=== PATIENT | male | born 1940 | race Caucasian/White ===

== ENCOUNTER → 2019-09-13 | Outpatient (CLI) | payer MEDICARE, SELFPAY ==
--- NOTE | 2019-09-13 08:19 | RAD_ITS ---
STUDY: X-RAY - PELVIS AND LEFT HIP REASON FOR EXAM: Male, 79 years old. CHRONIC PAIN X 2 MONTHS. NO INJURY TECHNIQUE: 3 views of the pelvis and hip. COMPARISON: None. FINDINGS: Moderate amount of fecal material is seen in the colon. Normal visualized soft tissue structures. There is narrowing with cortical sclerosis and osteophyte formation of the sacroiliac joint consistent with degenerative osteoarthritic changes. Normal bilateral superior and inferior pubic rami. Normal pubic symphysis. Normal bilateral ischial tuberosities. Normal visualized femoral head. There is osteoarthritic spur formation of the acetabular rim. There is moderate articular joint space narrowing of the hip. RAD/HIP, UNI W/ Pelvis 2-3 Views IMPRESSION: Degenerative changes of the sacroiliac joints as well as both hip joints. Electronically Signed: Rachid Quiñonez, at 8:42 EDT , Service support ,
== END | disposition home or self-care (01) ==
LOC: HPRAD 08:16
PROVIDERS: PCP Internal Medicine; Referring Provider Internal Medicine; Visit Provider Internal Medicine
DX: R10.30 Lower abdominal pain, unspecified (principal)
CPT/HCPCS: 73502

== ENCOUNTER → 2019-10-30 | Outpatient (CLI) | payer MEDICARE, SELFPAY ==
--- NOTE | 2019-10-30 14:30 | RAD_ITS ---
STUDY: X-RAY - LUMBAR SPINE REASON FOR EXAM: Male, 79 years old. L hip pain x 4 months nki TECHNIQUE: 3 view(s) of the lumbar spine were obtained. COMPARISON: None FINDINGS: Normal lumbar lordosis. There is no substantial scoliosis. There is a normal alignment of the vertebrae. There is multilevel endplate spondylosis of the lumbar vertebrae. There is multi-level degenerative disc disease with multi-level disc space narrowing. Facet joint osteoarthritis. The soft tissue structures are unremarkable. RAD/Lumbar Spine 2 or 3 Views IMPRESSION: Degenerative changes of the spine, as detailed above. Electronically Signed: Rachid Quiñonez, at 15:04 EDT , Service support ,
== END | disposition home or self-care (01) ==
LOC: RAD 14:23
PROVIDERS: PCP Internal Medicine; Referring Provider Anesthesiology Pain Medicine; Visit Provider Anesthesiology Pain Medicine
DX: M54.5 Low back pain (principal)
CPT/HCPCS: 72100

== ENCOUNTER → 2019-12-26 | Outpatient (CLI) | payer MEDICARE, SELFPAY ==
--- NOTE | 2019-12-26 08:34 | RAD_ITS ---
STUDY: X-RAY - PELVIS AND LEFT HIP REASON FOR EXAM: Male, 79 years old. LEFT HIP PAIN, NO TRAUMA TECHNIQUE: 3 views of the pelvis and hip. COMPARISON: 09/13/2019 FINDINGS: There is a non-specific bowel gas pattern. Normal visualized soft tissue structures. Normal bilateral iliac wings, sacroiliac joints and visualized sacrum. Normal bilateral superior and inferior pubic rami. Normal pubic symphysis. Normal bilateral ischial tuberosities. Normal visualized femoral head. Normal acetabulum. There is mild articular joint space narrowing of the hip. RAD/HIP, UNI W/ Pelvis 2-3 Views IMPRESSION: Mild arthrosis. Electronically Signed: Cristiano Butcher MD at 16:52 EDT Tel , Service support ,
== END | disposition home or self-care (01) ==
LOC: HPRAD 08:29
PROVIDERS: PCP Internal Medicine; Referring Provider Anesthesiology Pain Medicine; Visit Provider Anesthesiology Pain Medicine
DX: M25.552 Pain in left hip (principal)
CPT/HCPCS: 73502

== ENCOUNTER 2020-05-09 17:59 | Emergency (ER) | payer MEDICARE, SELFPAY ==
[2020-05-09 18:00] VITALS: BP 139/83; PULSE 103; RESP 20; TEMP 36.3; O2SAT 99; BMI 25.7
--- NOTE | 2020-05-09 18:05 | RAD_ITS ---
STUDY: X-RAY - LUMBAR SPINE REASON FOR EXAM: Male, 79 years old. BACK PAIN AFTER TRYING TO LIFT HIS TODAY. TECHNIQUE: view(s) of the lumbar spine were obtained. COMPARISON: 30 October 2019 FINDINGS: Lumbar spine is aligned with minor levoscoliosis. Mineralization is decreased. There is irregularity, possibly fracture or degeneration of the inferior endplate of L4, which can be an acute osteoporotic fracture versus subacute/chronic fracture. However, this was not present in October of last year. Remainder of the vertebral bodies are intact. There are expected mild lower lumbar degenerative changes. Soft tissue shadows are unremarkable. Appearance is stable since prior. RAD/Lumbar Spine 2 or 3 Views IMPRESSION: 1. Possible inferior L4 endplate fracture, acute or subacute or chronic. This was not present in October of last year. 2. Osteoporosis. Electronically Signed: Jennifer Corado, at 19:39 EST Tel , Service support ,
--- NOTE | 2020-05-09 18:15 | RAD_ITS ---
STUDY: X-RAY - PELVIS AND RIGHT HIP REASON FOR EXAM: Male, 79 years old. RIGHT HIP PAIN AFTER TRYING TO LIFT HIS TODAY TECHNIQUE: 3 views of the pelvis and hip. COMPARISON: None. FINDINGS: The bones of the pelvis are intact and the hips are located. The skeleton is osteopenic. There are degenerative changes in the lumbar spine. SI joints are intact. There is no intestinal obstruction. Soft tissue shadows are unremarkable. RAD/HIP, UNI W/ Pelvis 2-3 Views IMPRESSION: No acute fracture. In the presence of discordant negative x-rays and positive high risk symptomatology definitive confirmation with CT is advised to evaluate for possible radiographically occult fracture in an older osteoporotic adults. Electronically Signed: Jennifer Corado, at 19:30 EST Tel , Service support ,
--- NOTE | 2020-05-09 18:52 | ED.VIS.GEN ---
History of Present Illness Chief Complaint: Back Informant: Patient Onset: Today Context: Sudden Onset Timing: Continuous Current Severity: Mild Maximum Severity: Moderate Narrative: The patient is an 79-year-old male with medical history significant for hypercholesterolemia, hypertension, and prior back pain who presents to the emergency department back injury. Patient states that his fell to the ground. He was bending over to try and lift her up. He states he felt something pull in his right low back. Since then, has had pain in his low back into his buttock. It does not radiate down his leg. He denies any numbness in his groin. He is still able to ambulate. He has not taken anything for his pain. He states as long as he is not moving, he really has no pain. He does have history of arthritis and is on meloxicam. He is also had injections in his back before. He denies any sciatic symptoms. Prior similar symptoms: Yes Recent Illness/Hospitalization: No Past Medical History - Allergies and Home Meds Allergies/Adverse Reactions: Allergies No Known Allergies Allergy (Verified 07/25/14 11:05) Primary Care Physician: Juana Valencia DO [Primary Care Provider] - Prior records reviewed: Yes Past Medical History: - - Hypertension, high cholesterol Surgical History: noncontributory Smoking Status: Unknown if ever smoked Review of Systems General: Denies: Chills, Fever, Sweats Eyes: Denies: Visual changes - bilaterally, Diplopia ENT: Denies: Rhinorrhea, Sore throat Cardiovascular: Denies: Chest pain, Palpitations Respiratory: Denies: Dyspnea, Cough, Dyspnea on exertion Gastrointestinal: Denies: Abdominal pain, Nausea, Vomiting, Diarrhea, Melena, Hematochezia Genitourinary: Denies: Dysuria, Hematuria, Frequency Musculoskeletal: Reports: Back pain. Denies: Extremity Pain Skin: Denies: Rash, Wounds Neurological: Denies: Headache, Weakness, Numbness Physical Exam Vital Signs/Narrative: Vital Signs Temp Pulse Resp BP Pulse Ox 05/09/20 18:00 97.3 F L 103 H 20 H 139/83 H 99 Inital Vital Signs reviewed: Yes General: Well nourished, Well developed, No Acute Distress Head: Normocephalic, Atraumatic Eyes: Perrl, EOMI ENT: Moist mucous membranes, No rhinorrhea Neck: Supple, Nontender Cardiovascular: Regular rate, Regular rhythm, No murmurs Respiratory: No distress, CTA bilaterally, Chest nontender Abdomen: Soft, Nontender, Nondistended, Normal bowel sounds Back: Nontender, Normal Inspection Extremities: Nontender, No edema Skin: Normal color, No rash Neurological: Alert, Oriented x3, Cranial nerves II-XII grossly intact, Normal Strength, Normal Sensation Psychological: Normal affect, Normal Mood Diagnostic/Tx/Re-eval Clinical Impression(s) from Imaging Studies Lumbar Spine X-Ray 05/09/20 18:05 IMPRESSION: 1. Possible inferior L4 endplate fracture, acute or subacute or chronic. This was not present in October of last year. 2. Osteoporosis. Electronically Signed: Jennifer Corado, at 19:39 EST Tel , Service support , Hip/Pelvis X-Ray 05/09/20 18:15 IMPRESSION: No acute fracture. In the presence of discordant negative x-rays and positive high risk symptomatology definitive confirmation with CT is advised to evaluate for possible radiographically occult fracture in an older osteoporotic adults. Electronically Signed: Jennifer Corado, at 19:30 EST Tel , Service support , - Medical Decision Making Patient presents with back pain after lifting his . He has no red flag symptoms. He has no significant midline tenderness. His reflexes and pulses are normal. He has no abdominal pain. Plain films are obtained. They were reviewed by both myself and the radiologist. X-rays of the pelvis were unremarkable there. There is some degenerative change, but no evidence of acute fracture. X-ray of the lumbar spine do show chronic change. There is a questionable compression fracture of the endplate of L4. I did review this with the patient. Clinically, this may be consistent or may be subacute. I am going to treat him with a short course of analgesics and scheduled Tylenol. He will be discharged home. Impression 1. Compression fracture l4 ED Disposition - Plan for ED Patient: Instructions: ED Back Pain (Acute or Chronic) Prescriptions: Docusate Sodium [Colace] 100 mg PO DAILY #20 cap Prescription Printed Oxycodone [Oxyir] 2.5 mg PO Q6H PRN PRN 3 Days #8 tab PRN Reason: Pain/Inflammation Prescription Printed Referrals: Juana Valencia DO [Primary Care Provider] -
[2020-05-09 19:59] VITALS: BP 138/77; PULSE 72; RESP 16; O2SAT 98
== END 2020-05-09 19:59 | disposition home or self-care (01) ==
LOC: ED 19:17
PROVIDERS: Emergency Provider Emergency Medicine; PCP Internal Medicine
DX: S32.049A Unspecified fracture of fourth lumbar vertebra, initial encounter for closed fracture (principal); E78.00 Pure hypercholesterolemia, unspecified; I10 Essential (primary) hypertension; M19.90 Unspecified osteoarthritis, unspecified site; Z79.1 Long term (current) use of non-steroidal anti-inflammatories (NSAID); X50.0XXA Overexertion from strenuous movement or load, initial encounter; Y93.89 Activity, other specified; Y92.009 Unspecified place in unspecified non-institutional (private) residence as the place of occurrence of the external cause; Y99.8 Other external cause status
CPT/HCPCS: 72100; 73502; 99282

== ENCOUNTER → 2020-05-16 09:50 | Outpatient (CLI) | payer MEDICARE, SELFPAY ==
[2020-05-09 18:00] VITALS: BMI 25.7
--- NOTE | 2020-05-16 09:55 | BD_ITS ---
STUDY: DUAL ENERGY X-RAY ABSORPTIOMETRY / DXA REASON FOR EXAM: Male, 79 years old. CECI OF 0.75 INCH -- RECENT L4 COMPRESSION FX -- HX OF SMOKING- QUIT 50 YRS AGO -- TAKES DIURETIC -- DOES MODERATE AMOUNT OF EXERCISE NORMALLY -- HX OF ANKLE FX AND L4 FX, QUESTIONING R HIP FX CURRENTLY TECHNIQUE: Bone Mineral Density (BMD) measurements of lumbar spine and bilateral hips were obtained. COMPARISON: None. FINDINGS: Lumbar Spine (L1-L4): g/cm2 (1.072) / T-score (-1.1) / Z-score (-0.3) Findings are suggestive of osteopenia with a low fracture risk. Left Femur Total: g/cm2 (0.844) / T-score (-1.8) / Z-score (-0.6) Left Femoral Neck: g/cm2 (0.861) / T-score (-1.6) / Z-score (0.0) Right Femur Total: g/cm2 (0.884) / T-score (-1.5) / Z-score (-0.3) Right Femoral Neck: g/cm2 (0.930) / T-score (-1.1) / Z-score (0.5) BD/Dexa Bone Density Study IMPRESSION: The patient is considered osteopenic as outlined below according to World Charles Organization (WHO) criteria with a moderate fracture risk. Reference Information: The T-score is the number of standard deviations above or below the standard which is normal for young adults at their peak bone mineral density. The World Health Organization (WHO) interprets the T-scores as follows: Above -1 Normal bone density Between -1 and -2.5 Osteopenia Equal to / or below -2.5 Osteoporosis As a practical clinical guideline, osteopenia may be graded as follows: Mild -1 through -1.5 Moderate -1.6 through -2.0 Severe -2.1 through -2.4 The Z-score is the number of standard deviations above or below age-matched controls. A Z-score of less than -1.5 would be considered abnormal. References: 1. NIH Osteoporosis and Related Bone Diseases www osteo.org 2. International Society for Clinical Densitometry www iscd.org 3. National Osteoporosis Foundation www nof.org Electronically Signed: Rachid Quiñonez, at 12:59 EST , Service support ,
== END ==
PROVIDERS: PCP Internal Medicine; Referring Provider Internal Medicine; Visit Provider Internal Medicine
DX: M81.0 Age-related osteoporosis without current pathological fracture (principal)
CPT/HCPCS: 77080

== ENCOUNTER → 2020-05-23 07:46 | Outpatient (CLI) | payer MEDICARE, SELFPAY ==
[2020-05-09 18:00] VITALS: BMI 25.7
--- NOTE | 2020-05-23 08:02 | CT_ITS ---
HISTORY: ABNORMAL XRAY TECHNIQUE: Helically acquired images were obtained of the lumbar spine without intravenous contrast. 2D reformats were reviewed. A radiation dose optimization technique was used for this scan. COMPARISON: Most recent comparison x-rays available from May 09, 2020 FINDINGS: # of images incl. paperwork: 383 Schmorl's node invagination at the inferior endplate of the L4 vertebral body has some lucency at its margins, especially on the left, consistent with an acute Schmorl's node inferior endplate fracture. Mild the scoliosis, and a dextroscoliosis of the thoracolumbar junction, and a levoscoliosis at the lower lumbar spine is similar to the previous x-ray. Facets are adequately aligned. No spinous process or transverse process acute fractures. Bone mineral density is diminished. At the L3-L4 level facet arthropathy, ligamentum thickening, and disc bulge cause moderate spinal canal stenosis. At the L4-L5 level facet arthropathy and ligamentum thickening degenerative malalignment, and disc protrusion cause severe spinal canal stenosis. At the L5-S1 level disc bulge and facet arthropathy remain. Ligamentum thickening is less. Neural foraminal stenosis is present, left greater than right due to endplate enthesophytes. Gas is present dorsal to the L4 vertebral body, dorsal to the spinal canal at the L3-L4 interspace, and dorsal to the thecal sac at the L5-S1 level, consistent with epidural gas. This is likely extrathecal. CT/Spine Lumbar without Contrast IMPRESSION: Acute versus subacute fracture of the inferior endplate of the L4 vertebral body likely due to insufficiency and a Schmorl's node invagination. Vacuum disc phenomenon indicative of degenerative disc disease at the L5-S1 level with bilateral neural foraminal stenosis, left greater than right. Severe spinal canal stenosis at the L4-L5 level due to degenerative malalignment, facet arthropathy, ligamentum thickening, and disc protrusion. Gas within the spinal canal that is extradural. This is of unknown etiology but could be related to an interventional procedure such as a lumbar puncture. Degenerative disc gas from vacuum disc phenomenon and disc protrusion is feasible but considered less likely. In the absence of intervention, the possibility of gas related to infection is also within the differential. On this noncontrast CT scan I do not identify any other sequelae of potential epidural infection. For that, an MRI of the lumbar spine would be necessary. Individualized dose optimization techniques were used for this CT. at 2406 Reported and signed by: Brent Sykes MD Electronically Signed: Brent Sykes MD at 4:25 EST Tel , Service support ,
--- NOTE | 2020-05-23 08:03 | CT_ITS ---
STUDY: CT RIGHT HIP WITHOUT CONTRAST REASON FOR EXAM: Male, 79 years old. Abnormal x-ray RADIATION DOSAGE (If Supplied By Facility): CTDIvol = ( 15.37 ) mGy, DLP = ( 446.31 ) mGycm TECHNIQUE: Transaxial imaging of the right hip was performed without intravenous administration of contrast material. Individualized dose optimization techniques were used for this CT. COMPARISON EXAMS: X-ray of the right hip dated May 09, 2020 FINDINGS: There is mild to moderate proximal narrowing in the right hip joint with associated subchondral cystic changes in the acetabular roof. No demonstrated acute fracture or displaced bony fragment. The bony structures are demineralized. No aggressive process is present. No evidence of osteonecrosis. Atherosclerotic calcifications are present. Normal visualized superior and inferior pubic rami and ischial tuberosities. Mild subcutaneous edema is present. The visualized muscles are within normal limits. Unremarkable visualized intrapelvic structures. CT/Extremity Lower without Contra IMPRESSION: 1. 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 Electronically Signed: Adi Nunn MD at 0:00 EST , Service support ,
[2020-05-23 08:13] LABS: Absolute Lymphocyte Count 1.35 X10^3/uL (0.83-4.51); Absolute Neutrophil Count 6.8 X10^3/uL (2.0-7.7); Basophil# 0.02 X10^3/uL; Basophil% 0.2 % (0-1); Eosinophil# 0.01 X10^3/uL; Eosinophils% 0.1 % (0-5); Hematocrit 31.6 % (40-54); Hemoglobin 10.1 g/dL (13.0-16.5); Lymphocyte # 1.35 X10^3/ul (4.0); Lymphocyte % 15.3 % (19-41); Mean Corpuscular Hgb 31.7 pg (27.0-32.0); Mean Corpuscular Volume 99.1 fL (80-94); Mean Platelet Vol. 8.6 fl (6.2-12.0); Monocyte# 0.62 X10^3/uL; NRBC Flagged by Analyzer 0 % (0-5); Neutrophil # 6.79 X10^3/uL (2.7-7.7); Neutrophil % 76.7 % (47-70); Platelet Count 338 K/mm3 (150-450); RBC Distribution Width CV 13.8 % (11.6-14.6); RBC Distribution Width SD 50.2 fl (35.1-43.9); Red Blood Count 3.19 M/mm3 (4.6-6.2); White Blood Count 8.9 K/mm3 (4.4-11.0)
[2020-05-23 08:34] LABS: PTHIN 20.8 pg/mL (18.4-80.1)
[2020-05-23 08:44] LABS: AST(SGOT) 14 U/L (15-37); Alanine Aminotransfer ALT/SGPT 10 U/L (16-61); Alkaline Phosphatase 77 U/L (45-117); Bilirubin, Direct 0.11 mg/dL (0.00-0.30); CRP < 2.90 mg/L (0.0-3.0); Calcium,Total 10.3 mg/dL (8.5-10.1); Globulin 7.6 g/dL (2.2-4.2); Phosphorus 3.1 mg/dL (2.5-4.9); Protein, Total 10.6 g/dL (6.4-8.2); Thyroid Stim Hormone (TSH) 2.78 uIU/mL (0.358-3.74)
[2020-05-27 16:08] LABS: PROEL- A/G Ratio 0.6 (0.7-1.7); PROEL- Albumin 3.7 g/dL (2.9-4.4); PROEL- Alpha-1 Globulin 0.3 g/dL (0.0-0.4); PROEL- Gamma Globulin 3.9 g/dL (0.4-1.8); PROEL- Globulin, Total 6.2 g/dL (2.2-3.9); PROEL- TOTAL PROTEIN 9.9 g/dL (6.0-8.5); PROELU- Albumin, Urine 31.2 % (.); PROELU- Alpha-1-Globulin,Ur 8.3 % (.); PROELU- Alpha-2-Globulin,Ur 20.2 % (.); PROELU- Beta Globulin, Ur 23.8 % (.); PROELU- Gamma Globulin, Ur 16.6 % (.); Total Protein, Ur 7.3 mg/dL (Not Estab.)
[2020-05-27 18:52] LABS: Vitamin D 1,25-Dihydroxy 37.1 pg/mL (19.9-79.3)
== END ==
PROVIDERS: PCP Internal Medicine; Referring Provider Internal Medicine; Visit Provider Internal Medicine
DX: M81.0 Age-related osteoporosis without current pathological fracture (principal); R93.7 Abnormal findings on diagnostic imaging of other parts of musculoskeletal system; R93.89 Abnormal findings on diagnostic imaging of other specified body structures
CPT/HCPCS: 36415; 72131; 73700; 80076; 82306; 82310; 82652; 83970; 84100; 84165; 84166; 84443; 85025; 86140

== ENCOUNTER → 2020-05-31 14:30 | Outpatient (CLI) | payer MEDICARE, SELFPAY ==
[2020-05-09 18:00] VITALS: BMI 25.7
--- NOTE | 2020-05-31 14:43 | MRI_ITS ---
STUDY: MRI LUMBAR SPINE WITHOUT CONTRAST REASON FOR EXAM: Male, [address] lumbar, L4 fracture TECHNIQUE: Standardized fat and water weighted pulse sequences were obtained in the sagittal and axial planes. COMPARISON: CT 05/23/2020, x-ray 10/30/2019 FINDINGS: T12-L1: Normal endplates. Normal disc height, hydration and morphology. Normal bilateral facet joints. Normal central canal and bilateral lateral recesses. Normal bilateral intervertebral neural foramina. Normal lumbar lordosis. Mild levoscoliosis of the lumbar spine centered at L4. Normal conus medullaris that terminates at the T12/L1. L1-2: Normal endplates. Normal disc height, hydration and morphology. Normal bilateral facet joints. Normal central canal and bilateral lateral recesses. Normal bilateral intervertebral neural foramina. L2-3: Normal endplates. Normal disc height, hydration and morphology. Normal bilateral facet joints. Normal central canal and bilateral lateral recesses. Normal bilateral intervertebral neural foramina. L3-4: Normal endplates. Normal disc height, hydration and morphology. Normal bilateral facet joints. Normal central canal and bilateral lateral recesses. Normal bilateral intervertebral neural foramina. L4-5: Moderate bilateral facet hypertrophy with fluid in the facet joints consistent with instability and moderate ligament flavum hypertrophy. 2 mm of anterolisthesis of L4 and L5 with a moderate broad disc protrusion produces moderate spinal stenosis with mild right lateral recess stenosis, severe left lateral recess stenosis with effacement the left L5 nerve root and mild bilateral neural foraminal stenosis. L5-S1: Mild bilateral facet hypertrophy. Mild broad disc protrusion produces a mild spinal stenosis and moderate left neural foraminal stenosis with abutment of the left L5 nerve root laterally. Normal visualized sacral ala. Normal visualized paraspinous soft tissue structures. MRI/Spine Lumbar (Routine) IMPRESSION: Mild levoscoliosis with degenerative disc disease as described above. Electronically Signed: Cristiano Butcher MD at 10:05 EST Tel , Service support ,
--- NOTE | 2020-05-31 15:04 | RAD_ITS ---
STUDY: X-RAY - ORBITS REASON FOR EXAM: Male, 79 years old. mri clearance TECHNIQUE: 2 view(s) of the orbits were obtained. COMPARISON: None. FINDINGS: Normal bilateral orbits without a metallic orbital foreign body. Normal visualized facial bones. Normal paranasal sinuses. The soft tissue structures are unremarkable. RAD/Orbits for Foreign Body IMPRESSION: No demonstrated metallic orbital foreign body. The patient is cleared for an MRI examination. Electronically Signed: Rachid Quiñonez MD at 15:13 EST , Service support ,
[2020-06-04 14:08] LABS: Immunoglobulin G 4910 mg/dL (603-1613)
[2020-06-04 15:01] LABS: Immunoglobulin A 5 mg/dL (61-437); Immunoglobulin M 15 mg/dL (15-143)
== END ==
PROVIDERS: PCP Internal Medicine; Visit Provider Internal Medicine
DX: R93.7 Abnormal findings on diagnostic imaging of other parts of musculoskeletal system (principal); R77.1 Abnormality of globulin
CPT/HCPCS: 36415; 70030; 72148; 82784; 86334; 86335

== ENCOUNTER 2020-06-07 10:02 | Observation (INO) | payer MEDICARE, SELFPAY ==
[2020-06-07 10:03] VITALS: BP 149/87; PULSE 95; RESP 20; TEMP 35.8; O2SAT 98; BMI 25.0
--- NOTE | 2020-06-07 10:29 | EKG12_ITS ---
Test Reason : Blood Pressure : / mmHG Vent. Rate : 089 BPM Atrial Rate : 089 BPM P-R Int : 172 ms QRS Dur : 088 ms QT Int : 342 ms P-R-T Axes : 051 016 063 degrees QTc Int : 416 ms Normal sinus rhythm Normal ECG Confirmed by ADRIAN GALLARDO, JONATHAN (1980), newspaper editor RAMON OLIVER ([id number]) on 06/10/2020 2:11:40 PM Referred By: ERIKA Confirmed By:JONATHAN CAMPBELL MD
--- NOTE | 2020-06-07 10:29 | RAD_ITS ---
STUDY: X-RAY CHEST REASON FOR EXAM: Male, 79 years old. Weakness TECHNIQUE: Single AP portable view of the chest. COMPARISON: Comparison is made with prior study dated 07/25/2014. FINDINGS: EKG electrodes are seen. Hyperinflation. Calcified granuloma in the right midlung. There is no demonstrated pleural abnormality. Normal size heart. Normal mediastinum and natanael. Normal visualized pulmonary arteries. Normal visualized aortic arch and descending thoracic aorta. There are diffuse degenerative changes of the visualized thoracic spine. Normal visualized ribs, clavicles, and shoulders. There is no demonstrated abnormality of the visualized soft tissue structures of the upper abdomen. RAD/Chest 1 View (Portable) IMPRESSION: Hyperinflation. The lungs are clear. Electronically Signed: Rachid Quiñonez MD at 11:19 EST , Service support ,
[2020-06-07 10:30] VITALS: BP 154/84; PULSE 89; RESP 16; O2SAT 97
--- NOTE | 2020-06-07 10:32 | ED.VIS.GEN ---
History of Present Illness Chief Complaint: Weakness Informant: Patient, Family Onset: Weeks - 1 Context: Gradual Onset Timing: Continuous Quality: weakness Location: all over Current Severity: Moderate Maximum Severity: Moderate Worsened by: nothing in particular Relieved by: nothing Associated Symptoms: nausea, decreased appetite, constipation. no other new sx. Narrative: 79-year-old male who has been feeling weak for about the past week. Gradual in onset, not usually like this. Able to walk around with his walker. Denies any lightheadedness, dizziness, syncope. He had a minor fall 2 or 3 weeks ago, injuring his low back and radiography showed an L4 vertebral fracture. He has not yet seen health insurance specialist but is slated to in 3 days on Wednesday at the appointment that he has had. He has been taking tramadol for the pain in addition to meloxicam, and has been getting more constipated since then. He did take magnesium citrate a couple days ago which did result in a good bowel movement. His last bowel movement was a day before yesterday, and he has only been taking Colace since then, no MiraLAX although he has taken that once or twice in the past week. Not used any enemas yet either. He denies any abdominal pain. No vomiting but he has not been eating or drinking well. Additionally, he and daughter state that he had some elevated protein levels recently that is currently undergoing work-up. Patient denies any saddle anesthesia, radiation of pain down his legs, or urinary/bowel incontinence. He has had some trouble making a good stream of urine but this is new since he was constipated. He recently had a CT and MRI of his low back since his fracture, the MRI did not show anything acute just a mild DDD at 1 or 2 levels. Past Medical History - Allergies and Home Meds Allergies/Adverse Reactions: Allergies No Known Allergies Allergy (Verified 06/07/20 10:05) Primary Care Physician: Juana Valencia DO [Primary Care Provider] - Surgical History: noncontributory Lives: With Family Smoking Status: Unknown if ever smoked Review of Systems General: Reports: Malaise. Denies: Chills, Fever, Sweats Eyes: Denies: Visual changes - bilaterally, Diplopia ENT: Denies: Bilateral ear pain, Rhinorrhea, Sore throat Cardiovascular: Denies: Chest pain, Palpitations Respiratory: Denies: Dyspnea, Cough, Dyspnea on exertion Gastrointestinal: Reports: Nausea, Constipation. Denies: Abdominal pain, Vomiting, Diarrhea, Melena, Hematochezia Genitourinary: Denies: Dysuria, Hematuria, Frequency Musculoskeletal: Reports: Back pain - Distal spine at area of fracture, L4, especially when he does certain movements like sitting up. Lying at rest he really is not in much pain.. Denies: Myalgias, Neck pain, Swelling, Extremity Pain Skin: Denies: Rash, Wounds Neurological: Denies: Headache, Weakness, Numbness Physical Exam Vital Signs/Narrative: Vital Signs Temp Pulse Resp BP Pulse Ox 06/07/20 10:03 96.4 F L 95 20 H 149/87 H 98 Inital Vital Signs reviewed: Yes General: Well nourished, Well developed, No Acute Distress Head: Normocephalic, Atraumatic Eyes: Perrl, EOMI ENT: Moist mucous membranes, No rhinorrhea Neck: Supple, Nontender, No lymphadenopathy, No JVD Cardiovascular: Regular rate, Regular rhythm, No murmurs. Negative for: Tachycardia Respiratory: No distress, CTA bilaterally, Chest nontender Abdomen: Soft, Nontender, Nondistended, Normal bowel sounds, No masses. Negative for: Pulsatile mass Back: Nontender - And able to sit up with minimal assistance without significant pain or discomfort, Normal Inspection. Negative for: CVA tenderness Extremities: Nontender, No edema. Negative for: Calf Tenderness Skin: Normal color, No rash, No Trauma Neurological: Alert, Oriented x3, Cranial nerves II-XII grossly intact, Normal Strength, Normal Sensation, - - Hyporeflexive, symmetric. No clonus. Downgoing toes. Psychological: Normal affect, Normal Mood Diagnostic/Tx/Re-eval Impressions Chest X-Ray 06/07/20 10:29 IMPRESSION: Hyperinflation. The lungs are clear. Electronically Signed: Rachid Quiñonez MD at 11:19 EST , Service support , 06/07/20 10:29 Chest 1 View (Portable) [RAD] Stat Laboratory Results 06/07/20 06/07/20 06/07/20 10:50 10:50 11:20 WBC 4.8 RBC 3.23 L Hgb 10.5 L Hct 31.0 L MCV 96.0 H MCH 32.5 H MCHC 33.9 RDW Std Deviation 46.6 H RDW Coeff of Orestes 13.2 Plt Count 295 MPV 8.3 Immature Gran % (Auto) 0.400 Neut % (Auto) 56.8 Lymph % (Auto) 23.3 [place] % (Auto) 13.5 H Eos % (Auto) 5.4 H Baso % (Auto) 0.6 Absolute Neuts (auto) 2.7 Absolute Lymphs (auto) 1.12 Nucleated RBC % 0 Sodium 126 L Potassium 3.7 Chloride 94 L Carbon Dioxide 27.0 Anion Gap 5 BUN 18 Creatinine 1.32 H Estim Creat Clear Calc 49.60 Est GFR (MDRD) Af Amer 67 Est GFR (MDRD) Non-Af 55 L BUN/Creatinine Ratio 13.6 Glucose 93 Calcium 9.8 Total Bilirubin 0.50 AST 13 L ALT 12 L Alkaline Phosphatase 111 Troponin I < 0.015 Total Protein 10.1 H Albumin 2.9 L Globulin 7.2 H Albumin/Globulin Ratio 0.4 L Urine Color Yellow Urine Clarity Clear Urine pH 6.5 Ur Specific [place] 1.015 Urine Protein Negative Urine Glucose (UA) Normal Urine Ketones Negative Urine Occult Blood Negative Urine Nitrite Negative Urine Bilirubin Negative Urine Urobilinogen Normal Ur Leukocyte Esterase Negative Urine RBC 0 SEEN Urine WBC 0 SEEN Ur Squamous Epith Cells 0 SEEN Urine Bacteria 0 SEEN Urine Mucus 0 SEEN - Rhythm Strip Rhythm Strip: Sinus Rhythm Rate: 90 Ectopy: None - EKG Initial EKG Interpretation: Sinus Rhythm, No Acute Injury Pattern - normal EKG Prior: Unchanged - Medical Decision Making Work-up shows mild hyponatremia which I suspect is causing his symptoms. This is new. His renal function is stable, and he does not have significant prerenal azotemia. I suspect he is euvolemic. With regards to his hyperproteinemia, it appears that his recent work-up shows monoclonal lambda chain immunoglobulin, which is consistent with multiple myeloma. I discussed these findings briefly with the patient and daughter, they do not yet have an appointment with a hematology/social work specialist. We did start giving him gentle normal saline here in the department, and discussed with hospitalist for admission. ED Disposition - Plan for ED Patient: Disposition: Acute Care Hospital [facility] Diagnosis: Generalized weakness, Acute hyponatremia, Hyperproteinemia Referrals: Juana Valencia DO [Primary Care Provider] -
[2020-06-07] MEDS: 0.9% Normal Saline 1,000 ML 250 ML IV (11:02)
[2020-06-07 11:16] LABS: Absolute Lymphocyte Count 1.12 X10^3/uL (0.83-4.51); Absolute Neutrophil Count 2.7 X10^3/uL (2.0-7.7); Basophil# 0.03 X10^3/uL; Basophil% 0.6 % (0-1); Eosinophil# 0.26 X10^3/uL; Eosinophils% 5.4 % (0-5); Hemoglobin 10.5 g/dL (13.0-16.5); Lymphocyte # 1.12 X10^3/ul (4.0); Lymphocyte % 23.3 % (19-41); Mean Corp Hgb Conc 33.9 g/dL (32-36); Mean Corpuscular Hgb 32.5 pg (27.0-32.0); Mean Platelet Vol. 8.3 fl (6.2-12.0); Monocyte# 0.65 X10^3/uL; Monocyte% 13.5 % (0-10); NRBC Flagged by Analyzer 0 % (0-5); Neutrophil # 2.72 X10^3/uL (2.7-7.7); Neutrophil % 56.8 % (47-70); POSITIVE MORPHOLOGY YES; Platelet Count 295 K/mm3 (150-450); RBC Distribution Width CV 13.2 % (11.6-14.6); RBC Distribution Width SD 46.6 fl (35.1-43.9); Red Blood Count 3.23 M/mm3 (4.6-6.2); White Blood Count 4.8 K/mm3 (4.4-11.0)
[2020-06-07 11:17] LABS: Differential Indicated SCAN CRITERIA MET
[2020-06-07 11:25] LABS: Bacteria 0 SEEN /hpf (None Seen); Color, Urine Yellow (Yellow); Glucose, Dipstick Normal (Normal); Ketone-Dipstick Negative (Negative); Leukocyte Esterase-Dipstick Negative /ul (Negative); Mucous, Urine 0 SEEN /hpf (<or=2+); Nitrite-Dipstick Negative (Negative); Occult Blood-Urine Negative /ul (Negative); Protein-Dipstick Negative (Negative); Red Blood Cells-Urine 0 SEEN /hpf (0-5); Specific Gravity, Urine 1.015 (1.002-1.030); Squamous Epithelial Cells - UA 0 SEEN /hpf (0-5); Urine Bilirubin Dipstick Negative (Negative); Urine Clarity Clear (Clear); Urine Urobilinogen Normal (Normal); Urine pH 6.5 (5.0 - 8.0); White Blood Cells 0 SEEN /hpf (0-5)
[2020-06-07 11:31] LABS: ALB/GLOB Ratio 0.4 RATIO (0.9-2.4); AST(SGOT) 13 U/L (15-37); Alanine Aminotransfer ALT/SGPT 12 U/L (16-61); Albumin, Serum 2.9 g/dL (3.2-5.0); Alkaline Phosphatase 111 U/L (45-117); Anion Gap 5 (5-15); BUN 18 mg/dL (7-18); BUN/Creat Ratio 13.6 RATIO (10-20); Calcium,Total 9.8 mg/dL (8.5-10.1); Chloride 94 mmol/L (98-107); Creatinine, Serum 1.32 mg/dL (0.70-1.30); EST Glomerular Filtration Rate 55 mL/min (>60); Est Glom Filt Rate - Afr Amer 67 mL/min (>60); Globulin 7.2 g/dL (2.2-4.2); Glucose 93 mg/dL (74-106); Potassium 3.7 mmol/L (3.5-5.1); Protein, Total 10.1 g/dL (6.4-8.2); Sodium Level 126 mmol/L (136-145)
[2020-06-07 11:50] VITALS: BP 138/82; PULSE 86; RESP 15; O2SAT 98
[2020-06-07 13:16] VITALS: BMI 23.2
--- NOTE | 2020-06-07 13:24 | RAD_ITS ---
STUDY: X-RAY BONE SURVEY COMPLETE REASON FOR EXAM: Male, 79 years old. lab work consistent with multiple myeloma, multiple recent falls, increasing weakness, and low back pain TECHNIQUE: One view of the pelvis was obtained. views of the cervical spine were obtained. views of the thoracic spine were obtained. views of the lumbar spine were obtained. views of the femur. views of the humerus. : views of the skull were obtained. COMPARISON: None. FINDINGS: CHEST: The lungs are clear and expanded. There is no demonstrated pleural abnormality. Normal size heart. Normal mediastinum and natanael. Normal visualized pulmonary arteries. Normal visualized aortic arch and descending thoracic aorta. Normal visualized thoracic spine. Normal visualized ribs, clavicles, and shoulders. There is no demonstrated abnormality of the visualized soft tissue structures of the upper abdomen. PELVIS: There is a non-specific bowel gas pattern. Normal visualized soft tissue structures. Normal bilateral iliac wings, sacroiliac joints and visualized sacrum. Lytic expansile lesion of the left superior pubic ramus and correlation with CT and MRI is recommended. Normal pubic symphysis. Normal ischial tuberosities. Normal visualized right femoral head. Normal right acetabulum. Normal right hip joint. Normal visualized left femoral head. Normal left acetabulum. Normal left hip joint. CERVICAL SPINE: Normal anterior atlantoaxial articulation. Normal odontoid process. Normal cervical lordosis. There is multi-level endplate spondylosis. There is multi-level degenerative disc disease with multilevel disc space narrowing. Normal visualized intervertebral neuroforamina. The soft tissue structures are unremarkable. THORACIC SPINE: Normal kyphosis of the thoracic spine. Mild dextroscoliosis. There is multilevel endplate spondylosis of the thoracic vertebrae. There is multilevel disc space narrowing of the thoracic spine. The soft tissue structures are unremarkable. LUMBAR SPINE: Normal lumbar lordosis. Mild levoscoliosis. There is a normal alignment of the vertebrae. There is multilevel endplate spondylosis of the lumbar vertebrae. There is multi-level degenerative disc disease with multi-level disc space narrowing. The soft tissue structures are unremarkable. RIGHT FEMUR: Normal visualized femur. Normal visualized soft tissue structure. LEFT FEMUR: Normal visualized femur. Normal visualized soft tissue structure. RIGHT HUMERUS :Normal visualized humerus. There is no demonstrated fracture or osseous destructive process. There is no demonstrated soft tissue abnormality. LEFT HUMERUS:Normal visualized humerus. There is no demonstrated fracture or osseous destructive process. There is no demonstrated soft tissue abnormality. SKULL: There is no demonstrated soft tissue swelling. Normal osseous calvarium. Normal visualized facial bones. Normal visualized paranasal sinuses. RAD/Bone Survey Comp(Axial&Append) IMPRESSION: 1. Lytic expansile lesion of the left superior pubic ramus and correlation with CT or MRI is recommended. 2. No other radiographic evidence of multiple myeloma. 3. 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 Electronically Signed: Cristiano Butcher MD at 9:35 EST Tel , Service support ,
[2020-06-07 13:26] VITALS: BP 147/83; PULSE 88; RESP 14; TEMP 36.7; O2SAT 98
--- NOTE | 2020-06-07 13:53 | HP.PCM_ITS ---
History of Present Illness Date of Admission: 06/07/20 Chief Complaint: Weakness The patient is a 79 year old M with a PMH as below who presents to the hospital with family for weakness appears to started gradually over the last week and has been getting worse, he has progressed from being independent being able to shovel snow to requiring a walker to walk around the house. He has had a couple of minor falls over the last several weeks the family has noticed has become much more significant recently. He did have an x-ray of his low back after one of his falls which did show an L4 vertebral fracture. He was also found to have incidentally as an outpatient an elevated total protein and was being worked up for multiple myeloma. On review of his outpatient labs his lab work-up is consistent with multiple myeloma. The ER physician did express this to the patient and his family. Vital signs are unremarkable, his lab work demonstrates anemia hyponatremia, kidney disease though it is mild as well as a total protein of 10.1 all of which is consistent with multiple myeloma. Past Medical History Allergies No Known Allergies Allergy (Verified 06/07/20 10:05) Home Medications: Ambulatory Orders Medication Instructions Recorded Docusate Sodium [Colace] 100 mg PO DAILY #20 cap 05/09/20 Celecoxib [Celebrex] 200 mg PO DAILY 06/07/20 Cholecalciferol (VIT D3) [Vitamin 2,000 unit PO DAILY 06/07/20 D] Duloxetine HCl 30 mg PO DAILY 06/07/20 Fenofibric Acid (Choline) 45 mg PO DAILY 06/07/20 [Trilipix] Fish Oil/Dha/Epa [Fish Oil 1,200 1 ea PO DAILY 06/07/20 mg Fish Oil] Gluc Christian/Chondro Christian A/Vit C/Mn 2 ea PO DAILY 06/07/20 [Glucosamine Chondroitin Tab] Lisinopril-Hctz 10-12.5 mg Tab 2 tab PO DAILY 06/07/20 Mecobalamin [B12 Active] 2,000 mcg PO DAILY 06/07/20 Meloxicam 15 mg PO DAILY 06/07/20 Simvastatin 20 mg PO DAILY 06/07/20 traMADol [Ultram (G)] 50 mg PO BID PRN PRN 06/07/20 Surgical History: no surgical history Lives: With Family Smoking Status: Former smoker Tobacco Use: Cigarettes Alcohol: None Drugs: None - *Family History Maternal History Items: Cancer Paternal History Items: No pertinent history Review of Systems Constitutional: Reports: Weakness. Denies: Chills, Fever, Weight Change HEENT: Denies: Head Aches, Sinus Congestion, Sinus Drainage Cardiovascular: Denies: Chest Pain, Palpitations Respiratory: Denies: Cough, Shortness of breath at rest, Sputum production Gastrointestinal: Reports: Constipation, Nausea. Denies: Abdominal Pain, Vomiting Genitourinary: Denies: Dysuria Musculoskeletal: Reports: Back Pain. Denies: Joint Pain, Joint Tenderness Skin: Denies: Rash, Wounds Neurological: Denies: Numbness, Tingling, Focal weakness Psychiatric: Denies: Anxiety, Depression Hematologic/ Lymphatic: Denies: Easy Bruising, Easy Bleeding VTE Information - Inpt Only VTE Present on Admission: No Patient Problems: Active and Suspected Problems Generalized weakness (Acute) Acute hyponatremia (Acute) Hyperproteinemia (Acute) - Physical Exam Vitals/I&O's: Vital Signs Temp Pulse Resp BP Pulse Ox 98.0 F 88 14 147/83 H 98 06/07/20 13:26 06/07/20 13:26 06/07/20 13:26 06/07/20 13:26 06/07/20 13:26 Oxygen Delivery Method Room Air Weight: 176 lb 3 oz Body Mass Index (BMI) 23.2 Intake and Output for Last 24 Hours 06/05/20 06/06/20 06/07/20 23:59 23:59 23:59 Intake Total 241.67 / 241.67 Balance 241.67 / 241.67 General: Alert, Oriented x3, Cooperative, No apparent distress HEENT: Atraumatic, PERRLA, EOMI, Normocephalic Oral: Moist Mucosa Neck: Supple, No JVD Lungs: Clear to auscultation, Normal air movement, No rhonchi, No wheeze, No rales Cardiovascular: Regular rate, Regular Rhythm, Normal S1, Normal S2, No murmurs Abdomen: Soft, Non Tender, Non-Distended, No Hepato-splenomegaly Extremities: No edema, Capillary Refill Less than 3 Seconds Skin: No rashes, No breakdown Neurological: Neuro grossly intact, Sensory exam intact to light touch and pain Psych/Mental Status: Normal Affect, Appropriate Laboratory Results 06/07/20 10:50: WBC 4.8, RBC 3.23 L, Hgb 10.5 L, Hct 31.0 L, MCV 96.0 H, MCH 32.5 H, MCHC 33.9, RDW Std Deviation 46.6 H, RDW Coeff of Orestes 13.2, Plt Count 295, MPV 8.3, Immature Gran % (Auto) 0.400, Neut % (Auto) 56.8, Lymph % (Auto) 23.3, [place] % (Auto) 13.5 H, Eos % (Auto) 5.4 H, Baso % (Auto) 0.6, Absolute Neuts (auto) 2.7, Absolute Lymphs (auto) 1.12, Nucleated RBC % 0 06/07/20 10:50: Sodium 126 L, Potassium 3.7, Chloride 94 L, Carbon Dioxide 27.0, Anion Gap 5, BUN 18, Creatinine 1.32 H, Estim Creat Clear Calc 49.60, Est GFR (MDRD) Af Amer 67, Est GFR (MDRD) Non-Af 55 L, BUN/Creatinine Ratio 13.6, Glucose 93, Calcium 9.8, Total Bilirubin 0.50, AST 13 L, ALT 12 L, Alkaline Phosphatase 111, Troponin I < 0.015, Total Protein 10.1 H, Albumin 2.9 L, Globulin 7.2 H, Albumin/Globulin Ratio 0.4 L 06/07/20 11:20: Urine Color Yellow, Urine Clarity Clear, Urine pH 6.5, Ur Specific [place] 1.015, Urine Protein Negative, Urine Glucose (UA) Normal, Urine Ketones Negative, Urine Occult Blood Negative, Urine Nitrite Negative, Urine Bilirubin Negative, Urine Urobilinogen Normal, Ur Leukocyte Esterase Negative, Urine RBC 0 SEEN, Urine WBC 0 SEEN, Ur Squamous Epith Cells 0 SEEN, Urine Bacteria 0 SEEN, Urine Mucus 0 SEEN Current Medications Acetaminophen (Acetaminophen 325 Mg Tablet) 650 mg PO Q6H PRN PRN PRN Reason: Pain Score 1-10/Temp > 100.7 F Enoxaparin Sodium (Enoxaparin 40 Mg/0.4 Ml Syringe) 40 mg SC DAILY ESTRELLITA Sodium Chloride () 1,000 mls @ 100 mls/hr IV .Q10H ESTRELLITA Sodium Chloride () 250 mls @ 15 mls/hr IV .[id number] PRN PRN Reason: Saline Flush Sodium Chloride () 250 mls @ 15 mls/hr IV .[id number] PRN PRN Reason: Additional IVPB Infusion Melatonin (Melatonin 3 Mg Tablet) 3 mg PO QHS PRN PRN PRN Reason: INSOMNIA Ondansetron HCl (Ondansetron 4 Mg/2 Ml Vial) 4 mg IV Q8H PRN PRN PRN Reason: NAUSEA/VOMITING Sodium Chloride (0.9% Saline Lock 10 Ml Syringe) 10 - 40 ml IV UD PRN PRN Reason: SALINE FLUSH Assessment/Plan All Active Problems Generalized weakness (Acute) Acute hyponatremia (Acute) Hyperproteinemia (Acute) 1. Weakness likely secondary to multiple myeloma/hyponatremia/chronic pain/L4 vertebral body fracture/constipation -Immunofixation demonstrates IgG -Discussed the case with hematology/oncology, and they would like to obtain skeletal survey as well as a 24-hour urine collection with protein elect rophoresis and immunofixation, serum free light chains as well as a bone marrow aspirate -PT/OT for evaluation, case management for possible placement -We will continue with IV fluids for now secondary to his hyponatremia -He was supposed to be seeing Dr. Jonathan Uribe on Wednesday. We will continue with his home pain management medications and will place him on MiraLAX as well because of his issues with constipation. We will continue with his home Colace 2. HTN/HLD -Blood pressure stable -We will continue with his home cholesterol medication -We will hold his hydrochlorothiazide secondary to his hyponatremia -Continue with lisinopril 3. Anxiety/depression -Stable -Continue Cymbalta DVT: Lovenox OBSV E&M: [id number] Initial observation care L3
[2020-06-07] MEDS: 0.9% Saline Lock 10 ML Syringe IV (15:10)
[2020-06-07] MEDS: Fenofibrate 48 MG Tablet PO (17:12)
[2020-06-07] MEDS: DULoxetine Hcl 30 MG Capsule PO (17:13)
[2020-06-07] MEDS: Enoxaparin 40 MG/0.4 ML Syringe SC (17:13)
[2020-06-07] MEDS: Lisinopril 10 MG Tablet PO (17:13)
[2020-06-07] MEDS: Docusate Sodium 100 MG Capsule PO (17:13)
[2020-06-07] MEDS: Meloxicam 15 MG Tablet PO (19:48)
[2020-06-07 20:16] VITALS: BP 146/87; PULSE 100; RESP 16; TEMP 37.1; O2SAT 98
[2020-06-07] MEDS: 0.9% Normal Saline 1,000 ML 100 ML IV (21:36)
[2020-06-07] MEDS: MELATONIN 3 MG TABLET PO (21:38)
[2020-06-07] MEDS: Atorvastatin Calcium 10 MG Tablet PO (21:38)
[2020-06-07] MEDS: Polyethylene Glycol 3350 17 GM PACKET PO (21:38)
[2020-06-08 02:19] VITALS: BP 137/69; PULSE 88; RESP 16; TEMP 36.5; O2SAT 98
[2020-06-08] MEDS: 0.9% Normal Saline 1,000 ML 100 ML IV ×2 (07:16→16:52)
[2020-06-08] MEDS: Fenofibrate 48 MG Tablet PO (07:17)
[2020-06-08 07:19] VITALS: BP 145/83; PULSE 89; RESP 18; TEMP 36.6; O2SAT 95
[2020-06-08 07:19] LABS: Absolute Lymphocyte Count 1.15 X10^3/uL (0.83-4.51); Absolute Neutrophil Count 1.9 X10^3/uL (2.0-7.7); Basophil# 0.03 X10^3/uL; Basophil% 0.8 % (0-1); Eosinophil# 0.29 X10^3/uL; Eosinophils% 7.4 % (0-5); Hematocrit 26.8 % (40-54); Lymphocyte # 1.15 X10^3/ul (4.0); Lymphocyte % 29.4 % (19-41); Mean Corp Hgb Conc 33.6 g/dL (32-36); Mean Corpuscular Hgb 32.3 pg (27.0-32.0); Mean Corpuscular Volume 96.1 fL (80-94); Mean Platelet Vol. 8.6 fl (6.2-12.0); Monocyte# 0.55 X10^3/uL; Monocyte% 14.1 % (0-10); NRBC Flagged by Analyzer 0 % (0-5); Neutrophil # 1.87 X10^3/uL (2.7-7.7); Neutrophil % 47.8 % (47-70); POSITIVE MORPHOLOGY YES; Platelet Count 255 K/mm3 (150-450); RBC Distribution Width SD 45.4 fl (35.1-43.9); Red Blood Count 2.79 M/mm3 (4.6-6.2); White Blood Count 3.9 K/mm3 (4.4-11.0)
[2020-06-08 07:25] LABS: Differential Indicated SCAN CRITERIA MET
[2020-06-08 07:58] LABS: Anion Gap 3 (5-15); BUN 21 mg/dL (7-18); BUN/Creat Ratio 17.8 RATIO (10-20); Calcium,Total 9.2 mg/dL (8.5-10.1); Chloride 99 mmol/L (98-107); Creatinine, Serum 1.18 mg/dL (0.70-1.30); EST Glomerular Filtration Rate 63 mL/min (>60); Est Glom Filt Rate - Afr Amer 76 mL/min (>60); Estimated Creatinine Clearance 55.49 ml/min; Glucose 95 mg/dL (74-106); Potassium 4.1 mmol/L (3.5-5.1); Sodium Level 129 mmol/L (136-145)
[2020-06-08] MEDS: DULoxetine Hcl 30 MG Capsule PO (08:01)
[2020-06-08] MEDS: Enoxaparin 40 MG/0.4 ML Syringe SC (08:01)
[2020-06-08] MEDS: Acetaminophen 325 MG Tablet 650 MG PO ×2 (08:01→20:47)
[2020-06-08] MEDS: Lisinopril 10 MG Tablet PO (08:02)
[2020-06-08] MEDS: Meloxicam 15 MG Tablet PO (08:02)
[2020-06-08] MEDS: Polyethylene Glycol 3350 17 GM PACKET PO (08:02)
--- NOTE | 2020-06-08 10:28 | PCM.PN.HOSP ---
Patient Problems: Active and Suspected Problems Generalized weakness (Acute) Acute hyponatremia (Acute) Hyperproteinemia (Acute) Subjective: No new issues overnight. States that he feels about the same today as he did yesterday. Bone scan demonstrated a lytic lesion in his left suprapubic rami Vitals/I&O's: Vital Signs Temp Pulse Resp BP Pulse Ox 97.9 F 89 18 145/83 H 95 06/08/20 07:19 06/08/20 07:19 06/08/20 07:19 06/08/20 07:19 06/08/20 07:19 Oxygen Delivery Method Room Air Weight: 176 lb 3 oz Body Mass Index (BMI) 23.2 Intake and Output for Last 24 Hours 06/06/20 06/07/20 06/08/20 23:59 23:59 23:59 Intake Total 1200.00 / 1200.00 1666.67 / 1666.67 Output Total 625 / 625 Balance 1200.00 / 1200.00 1041.67 / 1041.67 General: Alert, Oriented x3, Cooperative, No apparent distress HEENT: Atraumatic, PERRLA, EOMI, Normocephalic Oral: Moist Mucosa Neck: Supple, No JVD Lungs: Clear to auscultation, Normal air movement, No rhonchi, No wheeze, No rales Cardiovascular: Regular rate, Regular Rhythm, Normal S1, Normal S2, No murmurs Abdomen: Soft, Non Tender, Non-Distended, No Hepato-splenomegaly Extremities: No edema, Capillary Refill Less than 3 Seconds Skin: No rashes, No breakdown Neurological: Neuro grossly intact, Sensory exam intact to light touch and pain Psych/Mental Status: Normal Affect, Appropriate Laboratory Results 06/07/20 10:50: WBC 4.8, RBC 3.23 L, Hgb 10.5 L, Hct 31.0 L, MCV 96.0 H, MCH 32.5 H, MCHC 33.9, RDW Std Deviation 46.6 H, RDW Coeff of Orestes 13.2, Plt Count 295, MPV 8.3, Immature Gran % (Auto) 0.400, Neut % (Auto) 56.8, Lymph % (Auto) 23.3, [place] % (Auto) 13.5 H, Eos % (Auto) 5.4 H, Baso % (Auto) 0.6, Absolute Neuts (auto) 2.7, Absolute Lymphs (auto) 1.12, Nucleated RBC % 0 06/07/20 10:50: Sodium 126 L, Potassium 3.7, Chloride 94 L, Carbon Dioxide 27.0, Anion Gap 5, BUN 18, Creatinine 1.32 H, Estim Creat Clear Calc 49.60, Est GFR (MDRD) Af Amer 67, Est GFR (MDRD) Non-Af 55 L, BUN/Creatinine Ratio 13.6, Glucose 93, Calcium 9.8, Total Bilirubin 0.50, AST 13 L, ALT 12 L, Alkaline Phosphatase 111, Troponin I < 0.015, Total Protein 10.1 H, Albumin 2.9 L, Globulin 7.2 H, Albumin/Globulin Ratio 0.4 L 06/07/20 11:20: Urine Color Yellow, Urine Clarity Clear, Urine pH 6.5, Ur Specific [place] 1.015, Urine Protein Negative, Urine Glucose (UA) Normal, Urine Ketones Negative, Urine Occult Blood Negative, Urine Nitrite Negative, Urine Bilirubin Negative, Urine Urobilinogen Normal, Ur Leukocyte Esterase Negative, Urine RBC 0 SEEN, Urine WBC 0 SEEN, Ur Squamous Epith Cells 0 SEEN, Urine Bacteria 0 SEEN, Urine Mucus 0 SEEN 06/08/20 06:37: WBC 3.9 L, RBC 2.79 L, Hgb 9.0 L, Hct 26.8 L, MCV 96.1 H, MCH 32.3 H, MCHC 33.6, RDW Std Deviation 45.4 H, RDW Coeff of Orestes 13.0, Plt Count 255, MPV 8.6, Immature Gran % (Auto) 0.500, Neut % (Auto) 47.8, Lymph % (Auto) 29.4, [place] % (Auto) 14.1 H, Eos % (Auto) 7.4 H, Baso % (Auto) 0.8, Absolute Neuts (auto) 1.9 L, Absolute Lymphs (auto) 1.15, Nucleated RBC % 0 06/08/20 06:37: Sodium 129 L, Potassium 4.1, Chloride 99, Carbon Dioxide 27.0, Anion Gap 3 L, BUN 21 H, Creatinine 1.18, Estim Creat Clear Calc 55.49, Est GFR (MDRD) Af Amer 76, Est GFR (MDRD) Non-Af 63, BUN/Creatinine Ratio 17.8, Glucose 95, Calcium 9.2 Current Medications Acetaminophen (Acetaminophen 325 Mg Tablet) 650 mg PO Q6H PRN PRN PRN Reason: Pain Score 1-10/Temp > 100.7 F Last Admin: 06/08/20 08:01 Dose: 650 mg Documented by: Atorvastatin Calcium (Atorvastatin Calcium 10 Mg Tablet) 10 mg PO QHS [facility] Last Admin: 06/07/20 21:38 Dose: 10 mg Documented by: Cholecalciferol (Cholecalciferol (Vit D3) 1,000 Unit (25mcg)) [facility] Last Admin: 06/08/20 07:17 Dose: 2,000 unit Documented by: Docusate Sodium (Docusate Sodium 100 Mg Capsule) 100 mg PO DAILY [facility] Last Admin: 06/08/20 08:02 Dose: Not Given Documented by: Duloxetine HCl (Duloxetine Hcl 30 Mg Capsule) 30 mg PO DAILY [facility] Last Admin: 06/08/20 08:01 Dose: 30 mg Documented by: Enoxaparin Sodium (Enoxaparin 40 Mg/0.4 Ml Syringe) 40 mg SC DAILY [facility] Last Admin: 06/08/20 08:01 Dose: 40 mg Documented by: Fenofibrate (Fenofibrate 48 Mg Tablet) [facility] Last Admin: 06/08/20 07:17 Dose: 48 mg Documented by: Sodium Chloride () 1,000 mls @ 100 mls/hr IV .Q10H [facility] Last Admin: 06/08/20 07:16 Dose: 100 mls/hr Documented by: Sodium Chloride () 250 mls @ 15 mls/hr IV .[id number] PRN PRN Reason: Saline Flush Sodium Chloride () 250 mls @ 15 mls/hr IV .[id number] PRN PRN Reason: Additional IVPB Infusion Lisinopril (Lisinopril 10 Mg Tablet) 10 mg PO DAILY [facility] Last Admin: 06/08/20 08:02 Dose: 10 mg Documented by: Melatonin (Melatonin 3 Mg Tablet) 3 mg PO QHS PRN PRN PRN Reason: INSOMNIA Last Admin: 06/07/20 21:38 Dose: 3 mg Documented by: Meloxicam (Meloxicam 15 Mg Tablet) 15 mg PO DAILY [facility] Last Admin: 06/08/20 08:02 Dose: 15 mg Documented by: Ondansetron HCl (Ondansetron 4 Mg/2 Ml Vial) 4 mg IV Q8H PRN PRN PRN Reason: NAUSEA/VOMITING Polyethylene Glycol (Polyethylene Glycol 3350 17 Gm Packet) 17 gm PO BID ESTRELLITA Last Admin: 06/08/20 08:02 Dose: 17 gm Documented by: Sodium Chloride (0.9% Saline Lock 10 Ml Syringe) 10 - 40 ml IV UD PRN PRN Reason: SALINE FLUSH Last Admin: 06/07/20 15:10 Dose: 10 ml Documented by: Tramadol HCl (Tramadol 50 Mg Tablet) 50 mg PO BID PRN PRN PRN Reason: Pain 1-10 STROKE Vital Signs/Narrative: Vital Signs Temp Pulse Resp BP Pulse Ox 06/08/20 07:19 97.9 F 89 18 145/83 H 95 Medical Necessity - Tobacco Use Smoking Status: Former smoker Tobacco Use: Cigarettes Assessment/Plan All Active Problems Generalized weakness (Acute) Acute hyponatremia (Acute) Hyperproteinemia (Acute) 1. Weakness likely secondary to multiple myeloma/hyponatremia/chronic pain/L4 vertebral body fracture/constipation -Immunofixation demonstrates IgG -Discussed the case with hematology/oncology, and they would like to obtain skeletal survey as well as a 24-hour urine collection with protein electrophoresis and immunofixation, serum free light chains as well as a bone marrow aspirate -Skeletal survey demonstrated a lytic lesion in his left superior pubic ramus -PT/OT for evaluation, case management for possible placement -We will continue with IV fluids for now secondary to his hyponatremia which is improving -He was supposed to be seeing Dr. Jonathan Uribe on Wednesday. We will continue with his home pain management medications and will place him on MiraLAX as well because of his issues with constipation. We will continue with his home Colace 2. HTN/HLD -Blood pressure stable -We will continue with his home cholesterol medication -We will hold his hydrochlorothiazide secondary to his hyponatremia -Continue with lisinopril 3. Anxiety/depression -Stable -Continue Cymbalta DVT: Lovenox OBSV E&M: [id number] Subsequent observation care L2
[2020-06-08 14:52] VITALS: BP 141/77; PULSE 100; PULSE 91; RESP 18; TEMP 37.1; O2SAT 94
[2020-06-08 19:38] LABS: 24HR. UA Prot. Total Volume 775 mL
[2020-06-08 19:39] LABS: 24 Hour Urine Protein 70.5 mg/24HR (<150 MG/24HR); Urine Protein (24 Hour) 9.1 mg/dL (<11.9)
[2020-06-08] MEDS: Atorvastatin Calcium 10 MG Tablet PO (20:47)
[2020-06-08 21:00] VITALS: BP 146/85; PULSE 92; RESP 16; TEMP 36.9; O2SAT 98
[2020-06-08] MEDS: MELATONIN 3 MG TABLET PO (22:00)
[2020-06-09] MEDS: 0.9% Normal Saline 1,000 ML 100 ML IV (02:31)
[2020-06-09 02:57] VITALS: BP 147/89; PULSE 95; RESP 16; TEMP 36.9; O2SAT 96
[2020-06-09] MEDS: traMADol 50 MG Tablet PO (03:28)
[2020-06-09 07:30] LABS: Absolute Lymphocyte Count 0.96 X10^3/uL (0.83-4.51); Absolute Neutrophil Count 2.4 X10^3/uL (2.0-7.7); Basophil# 0.01 X10^3/uL; Basophil% 0.2 % (0-1); Eosinophil# 0.31 X10^3/uL; Eosinophils% 7.2 % (0-5); Hematocrit 25.2 % (40-54); Hemoglobin 8.4 g/dL (13.0-16.5); Lymphocyte # 0.96 X10^3/ul (4.0); Lymphocyte % 22.2 % (19-41); Mean Corp Hgb Conc 33.3 g/dL (32-36); Mean Corpuscular Hgb 32.2 pg (27.0-32.0); Mean Corpuscular Volume 96.6 fL (80-94); Mean Platelet Vol. 8.6 fl (6.2-12.0); Monocyte% 13.9 % (0-10); NRBC Flagged by Analyzer 0 % (0-5); Neutrophil # 2.41 X10^3/uL (2.7-7.7); Neutrophil % 55.8 % (47-70); Platelet Count 233 K/mm3 (150-450); RBC Distribution Width CV 13.2 % (11.6-14.6); RBC Distribution Width SD 46.5 fl (35.1-43.9); Red Blood Count 2.61 M/mm3 (4.6-6.2); White Blood Count 4.3 K/mm3 (4.4-11.0)
[2020-06-09 07:47] LABS: Anion Gap 7 (5-15); BUN 18 mg/dL (7-18); BUN/Creat Ratio 16.8 RATIO (10-20); Calcium,Total 8.7 mg/dL (8.5-10.1); Chloride 99 mmol/L (98-107); Creatinine, Serum 1.07 mg/dL (0.70-1.30); EST Glomerular Filtration Rate 70 mL/min (>60); Est Glom Filt Rate - Afr Amer 85 mL/min (>60); Estimated Creatinine Clearance 61.19 ml/min; Glucose 86 mg/dL (74-106); Potassium 3.6 mmol/L (3.5-5.1); Sodium Level 130 mmol/L (136-145)
[2020-06-09 08:08] VITALS: BP 135/76; PULSE 86; RESP 18; TEMP 37.2; O2SAT 96
[2020-06-09] MEDS: Polyethylene Glycol 3350 17 GM PACKET PO (08:16)
[2020-06-09] MEDS: Fenofibrate 48 MG Tablet PO (08:16)
[2020-06-09] MEDS: DULoxetine Hcl 30 MG Capsule PO (08:17)
[2020-06-09] MEDS: Lisinopril 10 MG Tablet PO (08:17)
[2020-06-09] MEDS: Meloxicam 15 MG Tablet PO (08:17)
--- NOTE | 2020-06-09 09:39 | DCINST_ITS ---
- Discharge Diagnoses Current Active Problems: Current Active and Chronic Problems Generalized weakness (Acute) Acute hyponatremia (Acute) Hyperproteinemia (Acute) You will use the following diet at home:: Regular Your food should be the consistency of: Regular Your liquids should be the consistency of: Regular/Thin Discharge Activity: Return to Normal Activity Call your doctor if you observe: Fever of 101 or Higher, Shortness of breath, Dizziness, Fainting spells, Swelling in the ankles, Chest pain, Increased palpitations (irregular heartbeat) Instructions: Bone Marrow Aspiration and Biopsy Allergies/Adverse Reactions: Allergies No Known Allergies Allergy (Verified 06/07/20 10:05) Medications to take at Discharge Docusate Sodium [Colace] 100 mg PO DAILY #20 cap 05/09/20 Cholecalciferol (VIT D3) [Vitamin D3] 2,000 unit PO DAILY 06/07/20 Duloxetine HCl 30 mg PO DAILY 06/07/20 Fenofibric Acid (Choline) [Trilipix] 45 mg PO DAILY 06/07/20 Fish Oil/Dha/Epa [Fish Oil 1,200 mg Fish Oil] 1 ea PO DAILY 06/07/20 Gluc Christian/Chondro Christian A/Vit C/Mn [Glucosamine Chondroitin Tab] 2 ea PO DAILY 06/07/20 Mecobalamin [B12 Active] 2,000 mcg PO DAILY 06/07/20 Meloxicam 15 mg PO DAILY 06/07/20 Simvastatin 20 mg PO DAILY 06/07/20 traMADol [Ultram] 50 mg PO BID PRN PRN 06/07/20 Lisinopril 20 mg PO DAILY #30 tab 06/09/20 The following prescriptions were given: Lisinopril 20 mg PO DAILY #30 tab Transmission Status: Pending to [facility] Primary Care Physician: Juana Valencia DO [Primary Care Provider] - Please follow up with your Primary Care Physician in: 3-5 days Test Results: Test results from this visit will be discussed in further detail at your follow- up appointment, if applicable. Please Follow Up With: Yeyo Winslow MD When: 1 week Please Follow Up With: Bone Marrow Biopsy - Arrive to lab services for pre- procedure lab work. Please do not eat or drink anything after Midnight tonight When: 06/10/2020 @ 8 am Please Follow Up With: Jonathan Uribe DO When: 06/10/2020
[2020-06-09] MEDS: Docusate Sodium 100 MG Capsule PO (10:25)
[2020-06-09] MEDS: Acetaminophen 325 MG Tablet 650 MG PO (10:32)
--- NOTE | 2020-06-09 13:08 | DS.PCM_ITS ---
Discharge Date and Diagnosis - Problem List Patient Problems: Active and Suspected Problems Generalized weakness (Acute) Acute hyponatremia (Acute) Hyperproteinemia (Acute) Date of Admission: 06/07/20 Date of Discharge: 06/09/20 - Primary Discharge Diagnosis Acute Problems: Active Problems Generalized weakness (Acute) Acute hyponatremia (Acute) Hyperproteinemia (Acute) Hospital Course and Treatment Imaging Results: Clinical Impression(s) from Imaging Studies Chest X-Ray 06/07/20 10:29 IMPRESSION: Hyperinflation. The lungs are clear. Electronically Signed: Rachid Quiñonez MD at 11:19 EST , Service support , Bone Osseous Survey 06/07/20 13:24 IMPRESSION: 1. Lytic expansile lesion of the left superior pubic ramus and correlation with CT or MRI is recommended. 2. No other radiographic evidence of multiple myeloma. 3. 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 Electronically Signed: Cristiano Butcher MD at 9:35 EST Tel , Service support , Operations: None Procedures: None Summary of Care Provided: Per HPI: The patient is a 79 year old M with a PMH as below who presents to the hospital with family for weakness appears to started gradually over the last week and has been getting worse, he has progressed from being independent being able to shovel snow to requiring a walker to walk around the house. He has had a couple of minor falls over the last several weeks the family has noticed has become much more significant recently. He did have an x-ray of his low back after one of his falls which did show an L4 vertebral fracture. He was also found to have incidentally as an outpatient an elevated total protein and was being worked up for multiple myeloma. On review of his outpatient labs his lab work-up is consistent with multiple myeloma. The ER physician did express this to the patient and his family. Vital signs are unremarkable, his lab work de monstrates anemia hyponatremia, kidney disease though it is mild as well as a total protein of 10.1 all of which is consistent with multiple myeloma. Hospital Course: 1. Weakness likely secondary to multiple myeloma/hyponatremia/chronic pain/L4 vertebral body fracture/uumpnriehqob-31-xdlt-old male presented from home with multiple falls recently as well as worsening weakness. He is being worked up as an outpatient as he was found to have an elevated total protein as well as an elevated globulin. It does look like he has multiple myeloma and he underwent further inpatient lab studies which are pending. Plan will be for him to have a bone aspiration tomorrow morning at 9 AM, he was instructed to arrive at 8AM for processing and lab work. He also is scheduled to see Dr. Jonathan Uribe for his L4 vertebral body fracture tomorrow as well which she should be able to keep. He underwent PT and OT evaluation and they felt that he was stable for home given that he was able to ambulate 250 feet with a walker. They did have to give him some cues about its proper usage but he would not like to go to a retirement for rehab. Also he did have bowel movements with the initiation of MiraLAX, I did explain to him that he can buy MiraLAX [id number] and to adjust his dosing based on the number of bowel movements he is having during the day. I also spoke with the oncology liaison who will get in touch with him tomorrow about setting up his appointment with Dr. Winslow for follow-up of the biopsy as well as the lab work. He did have a skeletal survey which showed a lytic lesion in his left superior pubic ramus this is consistent with multiple myeloma. I discussed the plan for discharge today with him and he expressed understanding of the risk and benefits of going home and would like to go home today. The only medication change was I discontinued his hydrochlorothiazide secondary to his hyponatremia which did improve with holding HCTZ and starting him on IV fluids. I continued him only on his lisinopril at 20 mg daily. 2. Hypertension, hyperlipidemia, anxiety, depression chronic medical conditions which complicate his care. His home medications were continued where appropriate Patient Problems: Active and Suspected Problems Generalized weakness (Acute) Acute hyponatremia (Acute) Hyperproteinemia (Acute) - Physical Exam Vitals/I&O's: Vital Signs Temp Pulse Resp BP Pulse Ox 98.9 F 86 18 135/76 H 96 06/09/20 08:08 06/09/20 08:08 06/09/20 08:08 06/09/20 08:08 06/09/20 08:08 Oxygen Delivery Method Room Air Weight: 176 lb 3 oz Body Mass Index (BMI) 23.2 Intake and Output for Last 24 Hours 06/07/20 06/08/20 06/09/20 23:59 23:59 23:59 Intake Total 1200.00 / 1200.00 2626.67 / 3026.67 2555 / 2555 Output Total 625 / 625 500 / 500 Balance 1200.00 / 1200.00 2000.67 / 2401.67 2054 General: Alert, Oriented x3, Cooperative, No apparent distress HEENT: Atraumatic, PERRLA, EOMI, Normocephalic Oral: Moist Mucosa Neck: Supple, No JVD Lungs: Clear to auscultation, Normal air movement, No rhonchi, No wheeze, No rales Cardiovascular: Regular rate, Regular Rhythm, Normal S1, Normal S2, No murmurs Abdomen: Soft, Non Tender, Non-Distended, No Hepato-splenomegaly Extremities: No edema, Capillary Refill Less than 3 Seconds Skin: No rashes, No breakdown Neurological: Neuro grossly intact, Sensory exam intact to light touch and pain Psych/Mental Status: Normal Affect, Appropriate Laboratory Results 06/07/20 18:40: Ur Total Protein 24 Hr Pending, Urine Total Protein Pending, Urine Albumin Pending, U Cutmi-5-Odfkjzct Pending, U Tbjgp-5-Aojxwtvz Pending, U Beta Globulin Pending, U Gamma Globulin Pending, Free [place] LC, Quant Pending, Free Lambda LC, Quant Pending, Free [place]/Lambda Ratio Pending 06/08/20 : Urine Collection Time 24.0, Timed Urine Volume 775, Ur Total Protein 24 Hr 70.5, Urine Total Protein 9.1 06/09/20 06:00: WBC 4.3 L, RBC 2.61 L, Hgb 8.4 L, Hct 25.2 L, MCV 96.6 H, MCH 32.2 H, MCHC 33.3, RDW Std Deviation 46.5 H, RDW Coeff of Orestes 13.2, Plt Count 233, MPV 8.6, Immature Gran % (Auto) 0.700, Neut % (Auto) 55.8, Lymph % (Auto) 22.2, Cataño % (Auto) 13.9 H, Eos % (Auto) 7.2 H, Baso % (Auto) 0.2, Absolute Neuts (auto) 2.4, Absolute Lymphs (auto) 0.96, Nucleated RBC % 0 06/09/20 06:00: Sodium 130 L, Potassium 3.6, Chloride 99, Carbon Dioxide 24.0, Anion Gap 7, BUN 18, Creatinine 1.07, Estim Creat Clear Calc 61.19, Est GFR (MDRD) Af Amer 85, Est GFR (MDRD) Non-Af 70, BUN/Creatinine Ratio 16.8, Glucose 86, Calcium 8.7 Discharge Activity: Return to Normal Activity Call your doctor if you observe: Fever of 101 or Higher, Shortness of breath, Dizziness, Fainting spells, Swelling in the ankles, Chest pain, Increased palpitations (irregular heartbeat) Home Medications: Medications to take at Discharge Docusate Sodium [Colace] 100 mg PO DAILY #20 cap 05/09/20 Cholecalciferol (VIT D3) [Vitamin D3] 2,000 unit PO DAILY 06/07/20 Duloxetine HCl 30 mg PO DAILY 06/07/20 Fenofibric Acid (Choline) [Trilipix] 45 mg PO DAILY 06/07/20 Fish Oil/Dha/Epa [Fish Oil 1,200 mg Fish Oil] 1 ea PO DAILY 06/07/20 Gluc Christian/Chondro Christian A/Vit C/Mn [Glucosamine Chondroitin Tab] 2 ea PO DAILY 06/07/20 Mecobalamin [B12 Active] 2,000 mcg PO DAILY 06/07/20 Meloxicam 15 mg PO DAILY 06/07/20 Simvastatin 20 mg PO DAILY 06/07/20 traMADol [Ultram] 50 mg PO BID PRN PRN 06/07/20 Lisinopril 20 mg PO DAILY #30 tab 06/09/20 Following Prescriptions Were Given to Patient: Lisinopril 20 mg PO DAILY #30 tab Transmission Status: Received by [facility] Primary Care Physician: Juana Valencia DO [Primary Care Provider] - Please follow up with your Primary Care Physician in: 3-5 days Please Follow Up With: Yeyo Winslow MD When: 1 week Please Follow Up With: Bone Marrow Biopsy - Arrive to lab services for pre- procedure lab work. Please do not eat or drink anything after Midnight tonight When: 06/10/2020 @ 8 am Please Follow Up With: Jonathan Uribe DO When: 06/10/2020 Patient Instructions: Bone Marrow Aspiration and Biopsy Disposition: Home Minutes spent on discharge:: 35 Patient Condition:: Stable Medical Necessity - Tobacco Use Smoking Status: Former smoker Tobacco Use: Cigarettes Meaningful Use Info Meaningful Use Diagnoses (Choose all that apply): None applicable OBSV E&M: 02753 Observation care discharge
[2020-06-13 09:48] LABS: Albumin, Ur 30.9 % (.); Alpha-1-Globulin, Ur 3.7 % (.); Alpha-2-Globulins, Ur 23.6 % (.); Beta Globulin, Ur 25.8 % (.); Free Kappa Light Chains 5.4 mg/L (3.3-19.4); Free Lambda Light Chains 94.8 mg/L (5.7-26.3); M-Spike, Ur % 4.2 % (Not Observed); M-Spike, Ur mg/24Hr 3 mg/24 hr (Not Observed); Protein, 24Ur 71 mg/24 hr (30-150); Total Protein, Ur 9.1 mg/dL (Not Estab.)
== END 2020-06-09 11:55 | disposition home or self-care (01) ==
LOC: ED 12:11 → MS3 12:25
PROVIDERS: Admitting Provider Family Medicine; Emergency Provider Emergency Medicine; PCP Internal Medicine; Visit Provider Family Medicine
DX: R53.1 Weakness (principal); E87.1 Hypo-osmolality and hyponatremia; E88.09 Other disorders of plasma-protein metabolism, not elsewhere classified; K59.00 Constipation, unspecified; D64.9 Anemia, unspecified; E78.5 Hyperlipidemia, unspecified; I10 Essential (primary) hypertension; F41.9 Anxiety disorder, unspecified; G89.29 Other chronic pain; F32.9 Major depressive disorder, single episode, unspecified; Z79.899 Other long term (current) drug therapy; Z87.891 Personal history of nicotine dependence
CPT/HCPCS: 36415; 71045; 77075; 80048; 80053; 81001; 83883; 84156; 84166; 84484; 85025; 86335; 87040; 93005; 96360; 96361; 96372; 97110; 97116; 97162; 97166; 97530; 97802; 99218; 99284; J7030; A4216; G0378

== ENCOUNTER → 2020-06-10 07:41 | Outpatient (CLI) | payer MEDICARE, SELFPAY ==
[2020-06-07 13:16] VITALS: BMI 23.2
[2020-06-10] VITALS (9 sets, daily range): BP systolic 119–153; BP diastolic 54–91; PULSE 80–96; RESP 12–19; TEMP 36.6; O2SAT 97–100; BMI 23.2
--- NOTE | 2020-06-10 | IMM_PTH ---
PATIENT: JUAN CARLOS PATEL LOC: CT U#:[id number] AGE/SX: 84/M ROOM: RE06/10/[address]: Dr. Oscar Cavazos MD : 1940 BED: DIS: SPEC #: [id number] RECD: 06/11/20 13:12 STATUS: ESME REQ #: [id number] ANN: 06/10/20 00:[address]: Yeyo Winslow DEPT: IMMUNOHISTOCHEMISTRY RECD BY: Jes Eldridge ENTERED: 06/11/20 13:15 SP TYPE: IMMUNO OTHR DR: DO Dr. Oscar Moses MD Tissues: B - Bone marrow of iliac crest Procedures: BCL-2 (add) CD138 (add) CD20 (add) CD3 (add) CD43 (add) CD45 (add) CD5 (add) CD79A (add) KAPPA (add) KI-67 (add) LAMBDA (add) Pankeratin (initial) Comments: @ Ordering doctor for BCL2. edited from to @ by RGOOD at 06/11/20 1316 @ Ordering doctor for CD138. edited from to @ by RGOOD at 06/11/20 1316 @ Ordering doctor for CD20. edited from to @ by RGOOD at 06/11/20 1316 @ Ordering doctor for CD3. edited from to @ by RGOOD at 06/11/20 1316 @ Ordering doctor for CD43. edited from to @ by RGOOD at 06/11/20 1316 @ Ordering doctor for CD45. edited from to @ by RGOOD at 06/11/20 1316 @ Ordering doctor for CD5. edited from to @ by RGOOD at 06/11/20 1316 @ Ordering doctor for CD79A. edited from to DR.MISCKA Carlisle by RGOOD at 06/11/20 1316 @ Ordering doctor for K. edited from to @ by RGOOD at 06/11/20 1316 @ Ordering doctor for KI67. edited from to DR.MISCKA Carlisle by RGOOD at 06/11/20 1316 @ Ordering doctor for L. edited from to @ by RGOOD at 06/11/20 1316 @ Ordering doctor for PANK edited from to DR.MISCKA Carlisle by RGOOD at 06/11/20 1316 @ Submitting doctor edited from to DR.MISCKA Carlisle by RGOOD at 06/11/20 1316 PHYSICIAN & [place] [id number] SPECIMEN INFORMATION: Tissue Source: B - Bone marrow biopsy, clot Clinical Info: MGUS Specimen Number: [id number] CPT code: 61859, 05533 x11 METHODOLOGY: Deparaffinized sections of prefer/formalin-fixed tissue or PAP/DQ stained slides are incubated with monoclonal/polyclonal antibodies/oligonucleotide probes. Localization is made via biotin free immunoperoxidase method. Appropriate controls are performed and reacted as expected. Results on target cell population are indicated in the following table: RESULTS: ANTIBODY / CLONE RESULT Block B AE1-3 (AE1/AE3/PCK26) negative CD3 (PS1) negative CD5 (SP10) negative CD20 (L26) negative CD43 (L60) negative CD45 (RP2/18) positive CD79a (11E3) positive CD138 (B-A38) positive Inez (polyclonal) negative Lambda (polyclonal) positive BCL-2 (bcl-2/100/D5) positive Ki-67 (30-9) positive, 80% These tests were developed and their performance characteristics determined by [facility]. They may not have been cleared or approved by the U.S. Food and Drug Administration. The FDA has determined that such clearance or approval is not necessary. The above immunohistochemical/dualISH markers are ordered and reviewed by the Pathologist. INTERPRETATION: B. Bone marrow biopsy, clot: Plasma cell myeloma, lambda restricted. AM:britt 06/12/2020
--- NOTE | 2020-06-10 | BMB_PTH ---
PATIENT: JUAN CARLOS PATEL LOC: CT U#:[id number] AGE/SX: 84/M ROOM: RE06/10/[address]: Dr. Oscar Cavazos MD : 1940 BED: DIS: SPEC #: [id number] RECD: 06/10/20 09:30 STATUS: ESME REQ #: [id number] ANN: 06/10/20 00:[address]: Yeyo Winslow DEPT: BONE MARROW RECD BY: Bianca Lowe ENTERED: 06/10/20 10:53 SP TYPE: BMB OTHR DR: Dr. Juana Valencia, DO Dr. Oscar Cavazos MD Tissues: A - Bone marrow, NOS B - Bone marrow, NOS C - Bone marrow, NOS Procedures: Decalcification bone/plaque Bone Marrow Aspiration Bone Marrow Core Biopsy Iron Stain Bone Marrow Comments: @ Ordering doctor for DEC edited from to @ by HANNA at 06/11/20 1316 @ Ordering doctor for BMA edited from to @ by [email or web address] at 06/11/20 1316 @ Ordering doctor for BMCB edited from to @ by HANNA at 06/11/20 1316 @ Ordering doctor for FEBM edited from to @ by HANNA at 06/11/20 1316 @ Submitting doctor edited from to @ by RGOOD at 06/11/20 1316 HEADER OPERATION: Bone marrow biopsy and aspiration PRE-OP DIAGNOSIS: MGUS TISSUE SUBMITTED: A - Core, B - Clot, C - Smears, and send outs (flow and MM FISH) BONE MARROW DIAGNOSIS Bone marrow biopsy, clot and aspiration: Plasma cell myeloma, lambda-restricted. See comment. AM:britt 06/12/2020 COMMENT The bone marrow clot sections reveal a hypercellular bone marrow for age (55-70%) and comprising primarily (<95%) of mature appearing plasma cells. Immunohistochemistry ([id number]) supports the above diagnosis. Flow cytometry analysis of aspirate material reveals a plasma cell myeloma, IgG lambda-restricted, CD56 positive. The complete flow analysis is viewable in patient's EMR. Case has been reviewed in consultation with Dr. Parson who concurs with the above diagnosis. IDC:SJ BONE MARROW STUDY Slides are reviewed. CBC DATE: 06/10/20 WBC 5.3; RBC 2.81; HGB 9.2; HCT 26.6; MCV 94.7; RDW 45.1; PLTS 232,000 SEGS 57.3%; LYMPHS 24.2%; MONOS 9.9%; EOS 7.3%; BASOS 0.7% PERIPHERAL SMEAR: Submitted. RBC: Macrocytic anemia WBC: Normomorphic PLTS: Normomorphic BONE MARROW ASPIRATE DIFFERENTIAL: 100 cell count. Blasts % (normal 0-2): 2 Promyelocytes % (normal 1-5): 3 Myelocytes and metamyelocytes % (normal 17-41): _ Bands and Segs % (normal 15-32): 7 Eos % (normal 1-6): _ Basos % (normal 0-1): _ Monocytes % (normal 0-4): _ Erythroid Precursors % (normal 17-35): 8 Lymphocytes % (normal 7-13): _ Plasma Cells % (normal 0-2): 80 ASPIRATE FINDINGS: Site: Right hip Aspicular Hypocellular Markedly hemodilute. Rare maturing bone marrow elements. Approximately 80% of cellular population consists of mature appearing plasma cells. CORE BIOPSY FINDINGS: Site: Right hip Adequacy: Adequate Cellularity %: 25% M/E ratio: Not applicable Megakaryocytes: Rare Bony trabeculae: Not present Granulomas: Not present Lymphoid aggregate(s): Not present Atypical infiltrate(s): Greater than 95% of cellular population consists of mature appearing plasma cells. ASPIRATE CLOT FINDINGS: Site: Right hip Marrow Particles: Many Cellularity %: 55-70% M/E ratio: Not applicable Megakaryocytes: Rare Granuloma(s): Not present Lymphoid aggregate(s): Not present Atypical infiltrate(s): Greater than 95% of cellular population consists of mature appearing plasma cells. SPECIAL STAINS (with matched controls): Iron: Stainable iron absent Reticulin: Within normal limits PAS: Highlights myeloid elements and megakaryocytes. BONE MARROW GROSS A - Received is a container labeled with the patient's name and designated right hip. The specimen consists of multiple fragments of blood clot measuring in aggregate 2 x 0.5 x <0.1 cm. No obvious bone is identified. The specimen is totally submitted in one cassette. B - Received labeled with the patient's name and designated right hip is a specimen that consists of approximately 10 cc of bloody fluid that on filtration yields multiple minute fragments of blood clots measuring in aggregate 3 x 2.5 x 0.3 cm. The specimen is totally submitted in one cassette. C - Also received are 16 unstained and 1 peripheral stained slides. The unstained slides are submitted for appropriate staining. Also received are two green top tubes which are sent to our reference lab for flow and MM FISH. / SJ:rg 06/10/20 TC:0 CPT: 84019, 76952, 42226 x2, 63809 x3 ADDENDUM ADDENDUM ADDENDUM ADDENDUM ADDENDUM ADDENDUM ADDENDUM ADDENDUM ADDENDUM ADDENDUM ADDENDUM ADDENDUM ADDENDUM ADDENDUM ADDENDUM ADDENDUM ADDENDUM ADDENDUM ADDENDUM 06/19/2020 09:45 ADDENDUM 06/19/2020 09:45 ADDENDUM 06/19/2020 09:45 ADDENDUM 06/19/2020 09:45 ADDENDUM 06/19/2020 09:45 FLUORESCENCE IN-SITU HYBRIDIZATION (FISH) FROM [employer] MYELOMA PROGNOSIS INTERPRETATION: 1. No evidence of IGH-MAF [translocation t(14;16)] gene rearrangement. 2. No evidence of RB1 monosomy (13q14 deletion). 3. Positive for gain of 11q or trisomy 11; no evidence of CCND1-IGH [translocation t(11;14)] gene rearrangement. Comment: There is no evidence of CCND1-IGH gene rearrangement; however a subset of cells contains 3 CCND1 probe signals and 2 IGH probe signals, consistent with gain of 11q or trisomy 11. Trisomy 11 is associated with cyclin D1 overexpression and is a favorable prognostic variable for newly diagnosed plasma cell myeloma patients treated with high-dose chemotherapy or autologous transplantation. 4. Positive for gain of 17p or trisomy 17. 5. No evidence of FGFR3-IGH [translocation t(4;14)] gene rearrangement. 6. Negative for 1q21/CKS1B gain. Please see complete report in e-chart or EMR
--- NOTE | 2020-06-10 07:43 | CT_ITS ---
PROCEDURE: CT GUIDED BONE marrow biopsy and bone marrow aspiration. DATE: 06/10/2020. INDICATION: Male, 79 years old. Multiple myeloma. PHYSICIAN: Rachid Quiñonez M.D. RADIATION DOSAGE (If Supplied By Facility): CTDIvol = ( 15.2 ) mGy, DLP = ( 278.71 ) mGycm. Individualized dose optimization techniques were utilized. PROCEDURE: The risks, benefits, and alternatives to the procedure were explained to the patient. The specific risk of hemorrhage requiring further treatment or intervention was detailed and accepted. Follow-up instructions were discussed with the patient as well. Written informed consent was obtained. The patient was brought into the CT suite and placed in the prone position. . An appropriate entry site of the posterior right iliac bone was identified. The overlying skin was prepped and draped in the usual sterile fashion. 1% lidocaine was administered subcutaneously for local anesthesia. Conscious sedation was performed. The patient received 2 mg of VERSED and 50 mcg of FENTANYL intravenously. Conscious sedation was started at 9:31 AM and terminated at 9:51 AM patient was independently monitored by the department nurse. Under CT guidance, a bone marrow biopsy and bone marrow aspirates were obtained from the posterior right iliac bone. The specimens were then placed in the appropriate fluid and transported to the laboratory for analysis. Hemostasis was obtained. The patient tolerated the procedure well without immediate complications. CT/Biopsy/Inj or Needle Placement IMPRESSION: Successful CT guided bone marrow biopsy and bone marrow aspirate of the posterior aspect of the right iliac bone, as described above. Conscious sedation protocol was followed. Electronically Signed: Rachid Quiñonez MD at 10:24 EST , Service support ,
[2020-06-10 08:13] LABS: Absolute Lymphocyte Count 1.29 X10^3/uL (0.83-4.51); Absolute Neutrophil Count 3.1 X10^3/uL (2.0-7.7); Basophil# 0.04 X10^3/uL; Basophil% 0.7 % (0-1); Eosinophil# 0.39 X10^3/uL; Eosinophils% 7.3 % (0-5); Hematocrit 26.6 % (40-54); Hemoglobin 9.2 g/dL (13.0-16.5); Lymphocyte # 1.29 X10^3/ul (4.0); Lymphocyte % 24.2 % (19-41); Mean Corp Hgb Conc 34.6 g/dL (32-36); Mean Corpuscular Hgb 32.7 pg (27.0-32.0); Mean Corpuscular Volume 94.7 fL (80-94); Mean Platelet Vol. 8.2 fl (6.2-12.0); Monocyte# 0.53 X10^3/uL; Monocyte% 9.9 % (0-10); NRBC Flagged by Analyzer 0 % (0-5); Neutrophil # 3.06 X10^3/uL (2.7-7.7); Neutrophil % 57.3 % (47-70); POSITIVE MORPHOLOGY YES; Platelet Count 232 K/mm3 (150-450); RBC Distribution Width CV 13.1 % (11.6-14.6); RBC Distribution Width SD 45.1 fl (35.1-43.9); Red Blood Count 2.81 M/mm3 (4.6-6.2); White Blood Count 5.3 K/mm3 (4.4-11.0)
[2020-06-10 08:14] LABS: Differential Indicated SCAN CRITERIA MET
[2020-06-10 08:31] LABS: International Normalized Ratio 1.1; Partial Thromboplast Time 26.5 Seconds (24.1-36.2); Prothrombin Time (Protime)PT. 13.5 SECONDS (11.7-14.9)
[2020-06-10 08:38] LABS: Atypical Lymphocyte 1+ %; Hypochromasia 1+; Pathologist Review May foll; Platelet Estimate ADEQUATE (ADEQ)
[2020-06-10] MEDS: Midazolam 2 MG/2 ML Syringe IV (09:31)
[2020-06-10] MEDS: fentaNYL 100 MCG/2 ML Ampul IV (09:31)
[2020-06-10 10:27] LABS: Bone Marrow Aspiraton SEE PATHOLOGY REPORT
== END ==
PROVIDERS: PCP Internal Medicine; Referring Provider Family Medicine; Visit Provider Family Medicine
DX: C90.00 Multiple myeloma not having achieved remission (principal); R53.1 Weakness; E87.1 Hypo-osmolality and hyponatremia; E88.09 Other disorders of plasma-protein metabolism, not elsewhere classified
CPT/HCPCS: 38222; 36415; 77012; 85025; 85610; 85730; 88305; 88311; 88313; 88341; 88342; 99155; 99156; J7040; A4216

== ENCOUNTER 2020-06-29 10:36 | Emergency (ER) | payer MEDICARE, SELFPAY ==
[2020-06-24 13:18] VITALS: BMI 23.6
[2020-06-29 10:37] VITALS: BP 136/83; PULSE 103; RESP 16; TEMP 36.7; O2SAT 100; BMI 22.6
--- NOTE | 2020-06-29 10:55 | ED.DCSUM_ITS ---
- ER Visit Summary Date of Service: 06/29/20 Chief Complaint: Atraumatic left hip pain History of Present Illness: The patient is a 79 M 3 of hypertension, anemia, osteoarthritis-itis and recently diagnosed multiple myeloma in the last few months. Patient had a fall about 7 weeks ago. At that time he had pain in his left hip. Is progressively worse in the last several days. Had extensive work- up for it really think it secondary to arthritis. He has been using a walker at home. Today he was having so much pain he could not get out of bed. He is accompanied by his daughter. He denies any recent falls in the last several days. He denies any fever. No nausea vomiting or diarrhea. Recently was hospitalized about 3 weeks ago for electrolyte abnormalities. Physical Examination: Elderly male currently no acute distress lying in bed. Vital signs stable afebrile. H EENT exam unremarkable. Moist wheeze members. Neck nontender no lymphadenopathy. Lungs clear to auscultation bilaterally. Heart regular rhythm rate about 100 no murmur. Abdomen soft nontender normal b owel sounds no peritoneal signs. Pelvic girdle intact. Moving all 4 extremities. 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 Dorsi plantarflexion intact. Normal DP pulses. Normal left femoral pulse. Currently his left hip is really not very painful. He is able to flex and extend his left hip. There is no redness, warmth or swelling. There is no gross bony deformity. There is no rotation or shortening. He does not have significant tenderness over his lumbar spine or left SI joint. Back is nontender. Neurologically is awake and alert with no focal motor deficits. Test Results: CBC shows a white count of 6. Hemoglobin 10 which is his baseline chronic anemia. Electrolytes unremarkable gap of 9 creatinine of 1. Left hip and pelvis x-ray shows lytic lesions which are seen previously from his multiple myeloma but no acute fracture or dislocation. There is 2 views read by myself. Repeat exam patient is doing better after 2 doses of morphine. He was able to get up and ambulate with a walker with nursing personnel in the room. He and his daughter are comfortable with him being discharged home. Emergency Department Course and Treatment: Male with acute on chronic left hip pain. Unable to ambulate or get around his house. Screening labs will be obtained an x-ray of the pelvis and hip. And will try to ambulate the patient. Treatment Plan: Percocet for pain. Follow-up with your primary care physician. Disposition: Discharge Impression: Acute on chronic left hip pain History of multiple myeloma This note was generated with [employer] dictation software. It may contain incorrect words, spelling, and punctuation that were not noted in review of the chart p rior to signing ED Disposition - Plan for ED Patient: Referrals: Juana Valencia DO [Primary Care Provider] -
--- NOTE | 2020-06-29 10:59 | RAD_ITS ---
STUDY: X-RAY - PELVIS AND LEFT HIP REASON FOR EXAM: Male, 79 years old. Atraumatic pain TECHNIQUE: 3 views of the pelvis and hip. COMPARISON: June 07, 2020 bone survey FINDINGS: There is a non-specific bowel gas pattern. Normal visualized soft tissue structures. Again noted is a abnormal lytic expansile lesion of the left superior pubic ramus. The bones overall inhomogeneous similar to the prior study. The visualized abnormal foci of low attenuation within the left greater than right proximal femur suspicious for possible punched-out lesions or lesions associated with metastatic disease. RAD/HIP, UNI W/ Pelvis 2-3 Views IMPRESSION: Findings suspicious for bony metastasis. Especially involving the left superior pubic ramus known to this patient with a soft tissue mass as well as multifocal lytic lesions within the left greater than right proximal femurs. No visualized acute fracture. Recommend consideration for follow-up bone scan. Electronically Signed: Marianne Carlson MD at 13:52 EST Tel , Service support ,
[2020-06-29] MEDS: Ondansetron 4 MG/2 ML Vial IV (11:18)
[2020-06-29] MEDS: Morphine 4 MG/ML Syringe IV ×2 (11:18→13:32)
[2020-06-29 11:32] LABS: Absolute Lymphocyte Count 1.66 X10^3/uL (0.83-4.51); Absolute Neutrophil Count 3.4 X10^3/uL (2.0-7.7); Basophil# 0.02 X10^3/uL; Basophil% 0.3 % (0-1); Eosinophil# 0.21 X10^3/uL; Eosinophils% 3.4 % (0-5); Hematocrit 32.8 % (40-54); Hemoglobin 10.6 g/dL (13.0-16.5); Lymphocyte # 1.66 X10^3/ul (4.0); Mean Corp Hgb Conc 32.3 g/dL (32-36); Mean Corpuscular Hgb 31.5 pg (27.0-32.0); Mean Corpuscular Volume 97.6 fL (80-94); Mean Platelet Vol. 8.4 fl (6.2-12.0); Monocyte# 0.79 X10^3/uL; Monocyte% 12.8 % (0-10); NRBC Flagged by Analyzer 0 % (0-5); Neutrophil # 3.41 X10^3/uL (2.7-7.7); Neutrophil % 55.5 % (47-70); POSITIVE MORPHOLOGY YES; Platelet Count 396 K/mm3 (150-450); RBC Distribution Width CV 13.7 % (11.6-14.6); RBC Distribution Width SD 49.3 fl (35.1-43.9); Red Blood Count 3.36 M/mm3 (4.6-6.2); White Blood Count 6.2 K/mm3 (4.4-11.0)
[2020-06-29 11:33] LABS: Differential Indicated SCAN CRITERIA MET
[2020-06-29 11:44] LABS: Anion Gap 9 (5-15); BUN 25 mg/dL (7-18); BUN/Creat Ratio 23.8 RATIO (10-20); Calcium,Total 9.1 mg/dL (8.5-10.1); Chloride 106 mmol/L (98-107); Creatinine, Serum 1.05 mg/dL (0.70-1.30); EST Glomerular Filtration Rate 72 mL/min (>60); Est Glom Filt Rate - Afr Amer 87 mL/min (>60); Estimated Creatinine Clearance 60.72 ml/min; Glucose 89 mg/dL (74-106); Potassium 3.6 mmol/L (3.5-5.1); Sodium Level 136 mmol/L (136-145)
[2020-06-29 13:18] VITALS: BP 96/62; PULSE 106; RESP 16; O2SAT 98
--- NOTE | 2020-06-29 13:38 | ED.DEP ---
ED Disposition - Plan for ED Patient: Disposition: Home or Assisted Living Referrals: Juana Valencia DO [Primary Care Provider] - 3-5 Days Additional Instructions: Follow-up with your doctor. Percocet for your pain.
== END 2020-06-29 13:59 | disposition home or self-care (01) ==
PROVIDERS: Emergency Provider Emergency Medicine; PCP Internal Medicine
DX: M25.552 Pain in left hip (principal); G89.29 Other chronic pain; C90.00 Multiple myeloma not having achieved remission; I10 Essential (primary) hypertension; M19.90 Unspecified osteoarthritis, unspecified site; Z79.899 Other long term (current) drug therapy
CPT/HCPCS: 73502; 80048; 85025; 96374; 96375; 96376; 99285; J2405

== ENCOUNTER → 2020-09-17 17:16 | Outpatient (CLI) | payer MEDICARE, SELFPAY ==
[2020-09-11 13:56] VITALS: BMI 25.2
[2020-09-17 18:08] LABS: Amphetamine Urine VISTA NEGATIVE (<1000 ng/mL); Barbiturate Urine VISTA NEGATIVE (< 200 ng/mL); Benzodiazepine Urine VISTA NEGATIVE (< 200 ng/mL); Cocaine Urine VISTA NEGATIVE (< 300 ng/mL); Ecstacy Urine VISTA NEGATIVE (< 500 ng/mL); Methadone Urine VISTA NEGATIVE (< 300 ng/mL); PCP Urine VISTA NEGATIVE (< 25 ng/mL); THC Urine VISTA NEGATIVE (< 50 ng/mL); Vista UDS pH Range 5
== END ==
PROVIDERS: PCP Internal Medicine; Referring Provider Anesthesiology Pain Medicine; Visit Provider Anesthesiology Pain Medicine
DX: F11.20 Opioid dependence, uncomplicated (principal)
CPT/HCPCS: 80307

== ENCOUNTER → 2021-03-05 09:35 | Outpatient (CLI) | payer MEDICARE, SELFPAY ==
[2021-03-05 11:45] LABS: Amphetamine Urine VISTA NEGATIVE (<1000 ng/mL); Barbiturate Urine VISTA NEGATIVE (< 200 ng/mL); Benzodiazepine Urine VISTA NEGATIVE (< 200 ng/mL); Cocaine Urine VISTA NEGATIVE (< 300 ng/mL); Ecstacy Urine VISTA NEGATIVE (< 500 ng/mL); Methadone Urine VISTA NEGATIVE (< 300 ng/mL); PCP Urine VISTA NEGATIVE (< 25 ng/mL); THC Urine VISTA NEGATIVE (< 50 ng/mL); Vista UDS pH Range 7
== END ==
PROVIDERS: PCP Internal Medicine; Referring Provider Anesthesiology Pain Medicine; Visit Provider Anesthesiology Pain Medicine
DX: F11.20 Opioid dependence, uncomplicated (principal)
CPT/HCPCS: 80307

== ENCOUNTER → 2021-04-02 09:25 | Outpatient (CLI) | payer MEDICARE, SELFPAY ==
--- NOTE | 2021-04-02 09:28 | RAD_ITS ---
STUDY: X-RAY - PELVIS AND RIGHT HIP REASON FOR EXAM: Male, 80 years old. Right hip pain. TECHNIQUE: 3 views of the pelvis and hip. COMPARISON: 06/29/2020. FINDINGS: There is a non-specific bowel gas pattern. Normal visualized soft tissue structures. Osteopenia. Mild arthrosis of the sacroiliac joints. Deformity of the left superior and inferior pubic rami with a healed fracture of the inferior pubic ramus. The lytic lesion on the prior study has been filled in with bone to a great degree. Some lucency extends into the acetabular region, unchanged. Mild arthrosis of the symphysis pubis. Normal bilateral ischial tuberosities. Mild arthrosis of both hips, left greater than right. RAD/HIP, UNI W/ Pelvis 2-3 Views IMPRESSION: Osteopenia with osteoarthritic changes. Deformity of the left hemipelvis in a region where there was a lytic lesion before. Sclerosis at this site is noted. No acute osseous abnormality. Electronically Signed: Aftab Carr MD at 12:07 EST , Service support ,
== END ==
PROVIDERS: PCP Internal Medicine; Referring Provider Anesthesiology Pain Medicine; Visit Provider Anesthesiology Pain Medicine
DX: M16.11 Unilateral primary osteoarthritis, right hip (principal)
CPT/HCPCS: 73502

== ENCOUNTER 2021-06-11 09:57 | Day surgery (SDC) | payer MEDICARE, SELFPAY ==
[2021-06-11] VITALS (9 sets, daily range): BP systolic 109–146; BP diastolic 64–74; PULSE 84–95; RESP 16; TEMP 36.6–36.9; O2SAT 96–100; BMI 24.7
[2021-06-11] MEDS: Lactated Ringers 1,000 ML 15 ML IV (10:38)
--- NOTE | 2021-06-11 11:03 | PCM.HP.BLA ---
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 Required: No Is patient in pain?: No Allergies No Known Allergies Allergy (Verified 06/09/21 09:51) Medications docusate sodium 100 mg PO DAILY #20 cap 05/09/20 [Rx Confirmed 06/09/21] cholecalciferol (vitamin D3) 2,000 unit PO DAILY 06/07/20 [History Confirmed 06/09/21] fenofibric acid (choline) 45 mg PO DAILY 06/07/20 [History Confirmed 06/09/21] fish oil-dha-epa 1 ea PO DAILY 06/07/20 [History Confirmed 06/09/21] mecobalamin (vitamin B12) 2,000 mcg PO DAILY 06/07/20 [History Confirmed 06/09/21] simvastatin 20 mg PO DAILY 06/07/20 [History Confirmed 06/09/21] lisinopril 20 mg PO DAILY #30 tab 06/09/20 [Rx Confirmed 06/09/21] amlodipine 5 mg PO DAILY 06/24/20 [History Confirmed 06/09/21] aspirin 81 mg PO DAILY@0800 07/03/20 [History Confirmed 06/09/21] meloxicam 15 mg PO DAILY 07/03/20 [History Confirmed 06/09/21] polyethylene glycol 3350 17 gm PO DAILY 07/31/20 [History Confirmed 06/09/21] omeprazole magnesium 20 mg tablet,delayed release 20 mg PO .WEEKLY tab 10/09/20 [History Confirmed 06/09/21] hydrochlorothiazide 25 mg tablet 25 mg PO DAILY 12/18/20 [History Confirmed 06/09/21] sulfamethoxazole 800 mg-trimethoprim 160 mg tablet See Rx Instructions .ROUTE .COMPLEX #12 tab 03/10/21 [Rx Confirmed 06/09/21] ferrous sulfate 325 mg (65 mg iron) tablet,delayed release 325 mg PO DAILY 03/12/21 [History Confirmed 06/09/21] dexamethasone 4 mg tablet 40 mg PO .COMPLEX #40 tab 04/16/21 [Rx Confirmed 06/09/21] oxycodone myristate 13.5 mg capsule sprinkle extend release 12hr(DON'T CRUSH) 27 mg PO DAILY ea 06/04/21 [History Confirmed 06/09/21] PFSH Medical History Arthritis High cholesterol HTN (hypertension) hx of surgery of right index finger Surgical History No history of previous surgery Family History Mother Pancreatic cancer Sister CANCER Brother Cancer Social History housing: house Smoking Status: Former smoker Tobacco: How many years used: 10 Electronic Cigarette Use: not used second hand exposure: No alcohol intake: current alcohol intake frequency: a few times a week Alcohol type: beer substance use type: does not use caffeine: Yes Type: coffee Number of servings: 2 eating out: rarely or never what type of physical activity do you participate in: none stormy/religious: None seatbelt use: always do you feel safe at home: Yes HPI HPI HPI: JUAN CARLOS PATEL, is a 80 M who presents to the office today for port placement. Patient has multiple myeloma and requires port for treatment ROS General General: Yes weight change and weakness; No appetite, fatigue, colon cancer or breast cancer HEENT HEENT: No difficulty swallowing, eye injury, eye surgery, swollen glands or hoarseness Endo Endocrine: No thyroid disease, diabetes mellitus, thyroid cancer, Hair loss, heat intolerance or cold intolerance Skin Skin: No rash or changing moles Breast Breast: No left breast lump, right breast lump, nipple discharge, breast pain, abnormal mammogram, abnormal US or breast enlargement Musc Musculoskeletal: Yes arthritis; No back problems, rheumatoid arthritis, gout or joint pain Cardio Cardiovascular: Yes high blood pressure; No murmur, pacemaker, heart disease, atrial fibrillation, heart attack, heart stent, palpitations, shortness of breat with exertion or chest pain Psych Psychiatric: No depression, anxiety or hearing voices Resp Respiratory: No shortness of breath, No sleep apnea, No cough, No COPD, No asthma, No emphysema and No wheezing Gastro Gastrointestinal: No abdominal pain, No nausea or vomiting, No diarrhea, No constipation, No blood in stool, Yes acid reflux, No hemorrhoids, No ulcers, No gallbladder problem and No black,tarry stools Jeanmarie Hematologic: No blood thinners, No blood disorders, No bleeding, Yes anemia and No blood clots Neuro Neurologic: No system reviewed and no additional complaints, except as documented, No as per HPI, No abnormal gait, No abnormal hearing, No abnormal movements, No abnormal speech, No behavioral changes, No burning sensations, No confusion, No convulsions, No disequilibrium, No dizziness, No localized weakness, No frequent falls, No headache(s), No lack of coordination, No loss of vision, No memory loss, No numbness, No other visual disturbances, No radicular pain, No restless legs, No sensory deficit, No syncope, No tingling, No tremor(s), Yes weakness and No other Exam Const General: cooperative Orientation: alert and oriented x3 HENMT Head: normal to inspection Neck Neck: normal visual inspection and full ROM Chest Chest palpation & inspection: normal inspection of the chest Resp Effort & Inspection: normal respiratory effort Auscultation: clear to auscultation bilaterally Cardio Rate: regular rate Rhythm: regular rhythm GI Inspection: non-distended Palpation: soft and nontender Skin General: no rashes or lesions noted Neuro General: patient alert and patient oriented x3 Extrem General: full ROM Psych Appearance: grossly normal Mental Status: mental status grossly normal Assessment and Plan Assessment and Plan (1) Multiple myeloma: Status: Chronic Qualifiers: Multiple myeloma remission status: not in remission Qualified Code(s): C90.00 - Multiple myeloma not having achieved remission (2) Encounter for insertion of venous access port: Status: Acute Plan - Dr. Gregorio Browne MD: Discussed port placement and risks with the patient in detail. I discussed the risks including not limited to bleeding, infection, pneumothorax, line infection or DVT. Patient understands the risks and is when to proceed with right chest port placement. Gregorio Browne MD Pager: [facility] [address] [place] [address], [address] [place] [address] Office: I have re-examined the patient. There are no clinical changes since date of exam.
[2021-06-11] MEDS: Cefazolin 2 GM in 0.9% Normal Saline 100 ML IV (11:46)
[2021-06-11] MEDS: Bupivacaine Mpf 0.5% 30 ML VIAL (11:46)
--- NOTE | 2021-06-11 12:35 | RAD_ITS ---
STUDY: X-RAY CHEST REASON FOR EXAM: Male, 80 years old. PORT PLACEMENT TECHNIQUE: Single AP portable view of the chest. COMPARISON: Comparison is made with prior study dated 06/07/2020. FINDINGS: A right-sided lottie catheter has been placed. The tip is at the junction of the superior vena cava and right atrium. Hyperinflation. Stable calcified granulomas in the right upper lobe. There is no demonstrated pleural abnormality. Normal size heart. Normal mediastinum and natanael. Normal visualized pulmonary arteries. Normal visualized aortic arch and descending thoracic aorta. There are diffuse degenerative changes of the visualized thoracic spine. Normal visualized ribs, clavicles, and shoulders. There is no demonstrated abnormality of the visualized soft tissue structures of the upper abdomen. RAD/Chest 1 View (Portable) IMPRESSION: The tip of the right lottie catheter is at the junction of the superior vena cava and right atrium. Hypoinflation. Electronically Signed: Rachid Quiñonez MD at 13:04 EST ,
--- NOTE | 2021-06-11 12:51 | PCM.OPRPT ---
Problems Associated Problem List Diagnoses (1) Multiple myeloma: (2) Encounter for insertion of venous access port: Report of Operation Date of Procedure: 06/11/21 Pre-Operative Diagnosis: Need for vascular access for treatment of multiple myeloma Post-Operative Diagnosis: Same Surgery/Procedure Performed:: Ultrasound and fluoroscopy guided right chest port placement utilizing right IJ Description of Procedure: After obtaining informed consent patient was brought back to the operating room MAC anesthesia was induced and the right chest and neck were prepped in normal sterile fashion. Ultrasound was used to evaluate both IJs and the right IJ was selected. Next, using a needle, the right IJ was accessed and a guidewire was passed on into the superior vena cava under fluoroscopy guidance. A small incision was made over the puncture site and the dilator introducer was placed over the guidewire. Next this was capped and the pocket was made for the port. 1% lidocaine with epinephrine was injected in the proposed port site. An incision was made with scalpel. Electrocautery was used to make a pocket under the skin and subcutaneous tissue. Hemostasis was obtained. Next, the catheter was tunneled up to the neck incision site and placed through the introducer. The peel-away introducer was removed and the position of the catheter was confirmed on fluoroscopy. Next, the catheter was trimmed and attached to the port with the locking device. Interrupted 2-0 Vicryl sutures were used to anchor the port to the chest wall and then the port was placed inside the pocket. The pocket was then flushed with saline and the port irrigated with saline. There was good blood return and the port flushed easily. Next, heparin was injected into the port. The skin was closed with subcutaneous interrupted 3-0 Vicryl sutures. A single 3-0 Vicryl sutures placed under the skin at the neck incision site. Steri-Strips were placed as well as op sites. Patient tolerated procedure well, was taken to PACU in stable condition. Chest x-ray will be obtained. Grafts/Implants Used: 8 fr PowerPort Admit VTE Documentation VTE Mechan Device Prophylaxis: SCD's
--- NOTE | 2021-06-11 12:52 | EX.PCM.DISCH ---
Discharge Instructions Procedure Port-A-Cath Diet Discharge Diet: Light diet - advance as tolerated (Pain medication may cause nausea. You should typically eat light foods as you take your pain medication.) Activity Discharge Activity: Return to Normal Activity and May Shower (with your bandage in place in 1-2 days after surgery. DO NOT SHOWER WHEN YOUR PORT IS ACCESSED.) Dressing / Incision Call your doctor if your incision/area has: Continuous Slow Oozing, Sudden Increased Bleeding, Increased Pain/ Swelling, Increased Redness and Foul Smelling Discharge Call your doctor if you observe: Fever of 101 or Higher Remove Dressing in: 2 days Cleanse incision/area with: Soap & Water Additional Dressing/Incision Instructions:: remove bandages in 2 days, remove steri strips in 7-10 days, shower over both tomorrow` Follow Up Care Please Follow Up With: Gregorio Browne MD When: as needed [phone] Test Results: Test results from this visit will be discussed in further detail at your follow-up appointment, if applicable. Discharge Plan Admission Attending Provider: Gregorio Browne Primary Care Provider: Juana Valencia Discharge Orders/Prescriptions Prescriptions: No Action omeprazole magnesium [Prilosec OTC] 20 mg tablet,delayed release (DR/EC) 20 mg PO PRN PRN (Reason: Indigestion) RF: 0 hydrochlorothiazide 25 mg tablet 25 mg PO DAILY RF: 0 ferrous sulfate 325 mg (65 mg iron) tablet,delayed release (DR/EC) 325 mg PO DAILY RF: 0 dexamethasone 4 mg tablet 40 mg PO .COMPLEX Qty: 40 RF: 3 lidocaine-prilocaine 2.5-2.5 % cream 1 applic topical ONCE PRN (Reason: port access ) 30 Days Qty: 30 RF: 2 acyclovir 400 mg tablet 400 mg PO BID Qty: 60 RF: 2 simvastatin 20 MG tablet 20 mg PO DAILY RF: 0 fenofibric acid (choline) 45 MG capsule,delayed release(DR/EC) 45 mg PO DAILY RF: 0 fish oil-dha-epa 1 EACH capsule 1 ea PO DAILY RF: 0 cholecalciferol (vitamin D3) 1,000 UNIT tablet 2,000 unit PO DAILY RF: 0 mecobalamin (vitamin B12) 1,000 MCG tablet,chewable 2,000 mcg PO DAILY RF: 0 lisinopril 20 MG tablet 20 mg PO DAILY Qty: 30 RF: 0 amlodipine 5 MG tablet 5 mg PO DAILY RF: 0 meloxicam 15 MG tablet 15 mg PO DAILY RF: 0 aspirin 81 MG tablet,chewable 81 mg PO DAILY@0800 RF: 0 polyethylene glycol 3350 17 GM packet 17 gm PO DAILY RF: 0 Xtampza ER 9 mg Cap,Sprinkl,Er12hr(Dont Crush) 9 mg PO BID RF: 0 sulfamethoxazole-trimethoprim 800-160 mg tablet 1 tab PO MOWEFR RF: 0 docusate sodium 100 MG capsule 100 mg PO BID RF: 0 Referrals / Follow Up: Juana Valencia DO [Primary Care Provider] - Disposition Disposition (needs filled in before D/C Order can be placed): Home, Self Care
== END 2021-06-11 23:59 | disposition home or self-care (01) ==
LOC: SDC 09:58 → AC 10:00
PROVIDERS: PCP Internal Medicine; Referring Provider Surgery; Visit Provider Surgery
PROC: (CPT 36561; principal; 2021-06-11 11:35)
DX: C90.00 Multiple myeloma not having achieved remission (principal); Z87.891 Personal history of nicotine dependence; Z80.0 Family history of malignant neoplasm of digestive organs; I10 Essential (primary) hypertension; E78.00 Pure hypercholesterolemia, unspecified
CPT/HCPCS: 36561; 00532; 71045; 77001; J7120; C1788

== ENCOUNTER 2021-07-21 12:59 | Outpatient (CLI) | payer MEDICARE, SELFPAY ==
--- NOTE | 2021-07-21 13:25 | MRI_ITS ---
STUDY: MRI LUMBAR SPINE WITHOUT CONTRAST ENHANCEMENT OF 1401 HOURS ON 07/21/2021 REASON FOR EXAM: 80-year-old male with back and leg pain. TECHNIQUE: Standardized fat and water weighted pulse sequences were obtained in the sagittal and axial planes. COMPARISON: None FINDINGS: There is no evidence of lumbar vertebral body fractures. There is a 4 mm forward subluxation of L4 with respect to L5.. There is marked narrowing of the L5-S1 intervertebral disc space. There is no evidence of osseous spinal stenosis. There are multiple round, various size solid masses in all lumbar vertebra and posterior elements--suggestive of osseous metastatic disease. The conus and cauda equina have a normal appearance. There is a minimal intervertebral disc bulge at the L1-2 and L3-4 levels. There is a subluxation defect and a right central moderate intervertebral disc protrusion with posterior dural hypertrophy at the L4-5 level, which narrows the spinal canal by 55%. There is a central and left-sided intervertebral disc protrusion at the L5/S1 level that narrows the spinal canal by 40%. There is no evidence of other extradural, intradural, intramedullary lesions. The abdominal aorta is well-visualized and is without evidence of aneurysms or dissections. MRI/Spine Lumbar (Routine) IMPRESSION: 1. 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 2. No evidence of lumbar vertebral body or posterior element fractures. 3. Presence of a 4 mm forward subluxation of L4 with respect to L5. 4. Minimal intervertebral disc bulges at the L1-S2 and L3-4 levels. 5. Subluxation defect and a right central moderate intervertebral disc protrusion with posterior epidural hypertrophy at the L4-5 level, narrowing the spinal canal by 55%. 6. Central and left-sided intervertebral disc protrusion at the L5-S1 level, narrowing the spinal canal by 40%. 7. No evidence of other extradural, intradural, or intramedullary lesions. 8. No osseous spinal stenosis. Electronically Signed: Tolu Causey MD at 17:47 EDT ,
== END 2021-07-21 23:59 | disposition home or self-care (01) ==
PROVIDERS: PCP Internal Medicine; Referring Provider Anesthesiology Pain Medicine; Visit Provider Anesthesiology Pain Medicine
DX: M54.9 Dorsalgia, unspecified (principal); M79.606 Pain in leg, unspecified
CPT/HCPCS: 72148

== ENCOUNTER 2022-07-31 10:00 | Outpatient (RCR) | payer MEDICARE, SELFPAY ==
--- NOTE | 2022-06-23 10:39 | HP.PTEVAL_ITS ---
Patient's Visit Information JUAN CARLOS PATEL is a 81 year old M referred to Physical Therapy by Dr. Mike Brothers MD with a diagnosis of back pain and balance issues. Date of Evaluation: 06/23/22 Physical Therapist: GEOFFREY Villalobos - Visit Plan Frequency: 2x /Week Duration: 2 Months Plan: Pt needs a gait belt. 2X/ week for 8 weeks for gait training, balance training start static (standing Rhomberg with EC and then may try and add foam work starting in // bars) and progress as able to dynamic, strength of heel and toe raises and hips/core, General LE strength, with HEP starting now on his days off of PT. HEP: seated heel and toe raises and standing heel raises - Subjective Pt reports that he is unsteady on his feet and has been going on for 2-3 years. Pt is being treated for CA and was in the hospital for it and couple years ago he was told that his back is deteriorating and causing numbness in the bottom of his feet. It feels numb to him but they did check him with little needles. He has trouble picking up his feet. He reports that he has back pain and is being treated at the pain management clinic and got a shot in his spine. He has arthritis in his hip. He has no falls. He walks with a cane when he goes outside the house. Stairs: he has to hold onto the railing and when he goes up the steps he goes one step at a time. He has steps at home. He reports that he uses his arms to help him get out of a chair. He reports no dizziness - Objective Gait: Walks with short stride (foot does not pass stance foot either leg), increase veering at times, decrease heel to toe gait pattern and no push off. Uses a straight cane in the R hand. Tight Gastroc B. LE MMT: R hip flex 15.3# and L hip flex 15.7. R knee ext 28.3 and L 26.3. R knee flex 15.1 and L 13.2. R hip abd 10.7 and L 9.3#. sit to stand: Is able to get up without using his arms on first attempt but it is not a fluid movement with some weakness present. FGA: 8. Pt is unable to do standing heel and toe raises with UE support. CATSIB: 33. TU:03. Stairs: up and down recip with 2 hand rails and flexed knees with signs of weakness - Balance/Special Test Scores Functional Gait Assessment Score: 8 % Disability: 73.3400 CATSIB Score (Max score 120 seconds): 33 Lower Extremity Functional Score: 40 - Goals Goal 1:: I HEP Goal Time Frame: 6-8 Weeks Goal 2:: Increase balance score on the FGA (score at eval was a 9) Goal Time Frame: 6-8 Weeks Goal 3:: Decrease TUG time (time was 17:03 at eval) Goal Time Frame: 6-8 Weeks Goal 4:: Be able to stand with EC for 20 sec, stand on foam with EO X 20 sec Goal Time Frame: 6-8 Weeks - Rehabilitation Potential Rehabilitation Potential: Good - Anticipated Interventions Patient/Client Instruction: Educate patient on: Condition, Plan of Care For the Purpose of:: To improve nutrient delivery to tissue, To improve muscle performance and motor function, To improve ability to perform ADL's, To increase tolerance to activity/condition/position, To improve performance and independence with ADL's, To decrease level of supervision to perform tasks, To improve ability of physical actions for home/community/work/leisure, To improve gait and locomotor functions, To increase flexibility/ROM, To improve balance, To improve safety with gait Therapeutic Exercise to Include: Strength training, Endurance training, Balance training, Postural training, Flexibilty training, Gait and locomotor training, Neuromotor development, Passive ROM, Active ROM, Dynamic Lumbar Stabilization For the Purpose of:: To increase ROM, To improve muscle performance and motor function, To improve ability to perform ADL's, To increase tolerance to activity/condition/position, To improve performance and independence with ADL's, To decrease level of supervision to perform tasks, To improve ability of physical actions for home/community/work/leisure, To improve gait and locomotor functions, To improve health of tissue, To increase flexibility/ROM, To improve endurance, To improve balance, To improve safety with gait, To improve safety Functional Training to Include: Gait training For the Purpose of:: To improve gait and locomotor functions, To improve safety with gait Manual Therapy Techniques to Include: Passive ROM For the Purpose of:: To increase ROM, To improve health of tissue, To decrease soft tissue restriction, To increase flexibility/ROM Thank you for the opportunity to evaluate your patient. For Medicare and Medicare HMO plans, please review the plan of care and approve it. It will need to be FAXED BACK to us at [phone] for Medicare purposes. For Medicare only, by signing this I certify the plan of care. Please let me know if there are questions or concerns regarding this plan of care. Physician Signature: Date:
--- NOTE | 2022-11-04 15:29 | HP.PTDCSUM_ITS ---
Discharge Summary D/C summary: It has been my pleasure to treat JUAN CARLOS PATEL referred by Dr. Mike Brothers MD, with the diagnosis of back pain and balance issues for a total of 9 visit(s). Discharge Date: 07/31/22 Please see the following information for a summary of their discharge status. Subjective Subjective: Pt reports that he is busy next week. He reports that he wants to join [employer] after this. Overall Improvement % Improvement: 75 Objective Objective/Function: Pt feels that he has good understanding of machines listed above with set up. Pt has a log sheet with weights and reps. TU:14 (improved) Pt's standing balance overall has improved as he was unable to stand unsupported at eval. FGA: 8 (no improvement) Pt is able to stand now unsupported for at least 30 seconds. Goals Goal 1:: I HEP Goal Progress: Goal Met Goal 2:: Increase balance score on the FGA (score at eval was a 9) Goal Progress: Not Progressing Goal 3:: Decrease TUG time (time was 17:03 at eval) Goal Progress: Goal Met Goal 4:: Be able to stand with EC for 20 sec, stand on foam with EO X 20 sec Goal Progress: Goal Met Plan Plan: DC PT to I [facility] program (see above) D/C Information Discharge Comments: DC PT to [facility]. d/c sentence: If there are questions or concerns regarding this patient's physical therapy, please feel free to call me at [phone]. Thank you for the referral of this patient. Sincerely, Jackelyn Mccoy, MPT Balance/Gait/Functional tests Balance/Special Test Scores Functional Gait Assessment Score: 8 % Disability: 73.3400 CATSIB Score (Max score 120 seconds): 33 Lower Extremity Functional Score: 32
== END 2022-07-31 19:00 | disposition home or self-care (01) ==
LOC: PT 10:00
PROVIDERS: PCP Internal Medicine; Referring Provider Anesthesiology Pain Medicine; Visit Provider Anesthesiology Pain Medicine
DX: M54.9 Dorsalgia, unspecified (principal); R26.81 Unsteadiness on feet
CPT/HCPCS: 97110; 97161

== ENCOUNTER → 2023-02-17 | Outpatient (CLI) | payer MEDICARE, SELFPAY ==
--- NOTE | 2023-02-17 13:35 | ECHOD_ITS ---
Reason For Study: Murmur Procedure This was a 2D Doppler, Color Flow transthoracic echocardiogram. Exam performed in department. Left Ventricle Normal LV size. Left ventricular systolic function is normal. The estimated ejection fraction is 65 %. Stage 1 diastolic dysfunction. No regional wall motion abnormalities noted. Right Ventricle Normal RV size. Normal systolic function. Atria Normal left atrium. Normal right atrium. Mitral Valve Mild focal mitral valve calcification of the anterior leaflet. There is mild mitral annular calcification. Tricuspid Valve Normal tricuspid valve. Mild tricuspid valve insufficiency. Pulmonary artery systolic pressure is 28 mmHg. Aortic Valve Trisinus/trileaflet aortic valve. Moderate focal aortic valve thickening. Peak aortic valve gradient 29 mmHg. Mean aortic valve gradient 20 mmHg. Mild to moderate aortic stenosis. Pulmonic Valve Normal pulmonic valve. Great Vessels Normal aortic root. The pulmonary artery is normal size. Normal inferior vena cava. Pericardium/Pleural No pericardial effusion. MMode/2D Measurements & Calculations LVIDd: 3.4 cm IVSd: 1.1 cm LVOT diam: 2.2 cm LVIDs: 2.3 cm LVPWd: 1.1 cm LVOT area: 3.7 cm2 RVDd: 3.8 cm FS: 31.6 % Ao root diam: 3.2 cm LAV(MOD-bp): 42.8 ml LVAd ap4: 22.7 cm2 ACS: 0.98 cm LAV(MOD-bp) Indexed: 20.3 ml/m2 LVLd ap4: 7.2 cm LAV(MOD-sp2): 41.1 ml EDV(MOD-sp4): 57.9 ml LAV(MOD-sp4): 39.8 ml EDV(sp4-el): 60.6 ml LVAs ap4: 11.8 cm2 LVLs ap4: 5.7 cm ESV(MOD-sp4): 20.1 ml ESV(sp4-el): 20.8 ml EF(MOD-sp4): 65.2 % EF(sp4-el): 65.7 % SV(MOD-sp4): 37.8 ml SV(sp4-el): 39.8 ml LA A4 area: 16.1 cm2 LA dimension(2D): 3.4 cm RA A4 area: 10.0 cm2 TAPSE: 2.4 cm Time Measurements MV dec time: 0.29 sec Doppler Measurements & Calculations MV E max warren: 84.9 cm/sec Lat Peak E' Warren: 6.9 cm/sec Med Peak E' Warren: 7.2 cm/sec MV A max warren: 111.6 cm/sec E/E' lat: 12.4 E/E' med: 11.7 MV E/A: 0.76 MV V2 max: 135.4 cm/sec Ao V2 max: 270.4 cm/sec MV max P.3 mmHg MV dec slope: 294.0 cm/sec2 Ao max P.2 mmHg MV V2 mean: 83.9 cm/sec Ao V2 mean: 215.7 cm/sec MV mean P.1 mmHg Ao mean P.6 mmHg MV V2 VTI: 23.6 cm Ao V2 VTI: 55.7 cm AV (velocity ratio): 0.41 MVA(VTI): 3.6 cm2 DORINDA(I,D): 1.5 cm2 DORINDA(V,D): 1.3 cm2 LV V1 max: 99.5 cm/sec SV(LVOT): 84.0 ml PA V2 max: 107.1 cm/sec LV V1 max P.0 mmHg LV V1 mean P.4 mmHg LV V1 mean: 74.4 cm/sec LV V1 VTI: 22.9 cm PI end-d warren: 83.0 cm/sec TR max warren: 246.2 cm/sec TR max P.3 mmHg ECHO/Echo Complete Interpretation Summary Normal LV size. Left ventricular systolic function is normal. The estimated ejection fraction is 65 %. Moderate focal aortic valve thickening. Mean aortic valve gradient 20 mmHg. Mild to moderate aortic stenosis. Stage 1 diastolic dysfunction. Ordering Physician: Juana Valencia Referring Physician: Juana Valencia Performed By: Ayanna Phelps, BRIE, RVT
== END | disposition home or self-care (01) ==
LOC: CVS 13:33
PROVIDERS: PCP Internal Medicine; Referring Provider Internal Medicine; Visit Provider Internal Medicine
DX: R01.1 Cardiac murmur, unspecified (principal); C90.00 Multiple myeloma not having achieved remission
CPT/HCPCS: 93306

== ENCOUNTER → 2024-02-16 | Outpatient (CLI) | payer MEDICARE, SELFPAY ==
--- NOTE | 2024-02-16 08:49 | ECHOD_ITS ---
Reason For Study: AORTIC STENOSIS Procedure This was a 2D Doppler, Color Flow transthoracic echocardiogram. Exam performed in department. Left Ventricle Normal LV size. The estimated ejection fraction is 65 %. Unable to assess diastolic dysfunction. No regional wall motion abnormalities noted. Right Ventricle Normal RV size. Normal systolic function. Atria The left and right atria are normal. No doppler evidence for ASD. Mitral Valve There is moderate mitral annular calcification. There is no mitral valve stenosis. No mitral valve insufficiency. Tricuspid Valve There is no tricuspid stenosis. Trivial tricuspid valve insufficiency. Pulmonary artery systolic pressure is 30 mmHg. Aortic Valve Trisinus/trileaflet aortic valve. Moderate aortic stenosis. No aortic valve insufficiency. Pulmonic Valve There is no pulmonic valvular stenosis. Trivial pulmonic valve insufficiency. Great Vessels Normal aortic root. Pericardium/Pleural No pericardial effusion. MMode/2D Measurements & Calculations LVIDd: 3.1 cm IVSd: 1.7 cm LVOT diam: 2.2 cm LVIDs: 1.8 cm LVPWd: 1.2 cm LVOT area: 3.8 cm2 RVDd: 3.6 cm FS: 42.5 % asc Aorta Diam: 3.9 cm LAV(MOD-bp): 49.6 ml LVAd ap4: 19.8 cm2 LAV(MOD-bp) Indexed: 23.4 ml/m2 LVLd ap4: 7.3 cm LAV(MOD-sp2): 62.8 ml EDV(MOD-sp4): 43.5 ml LAV(MOD-sp4): 36.2 ml EDV(sp4-el): 45.4 ml LVAs ap4: 11.4 cm2 LVLs ap4: 5.7 cm ESV(MOD-sp4): 19.0 ml ESV(sp4-el): 19.4 ml EF(MOD-sp4): 56.2 % EF(sp4-el): 57.2 % LVAd ap2: 22.3 cm2 SV(MOD-sp4): 24.5 ml SV(MOD-sp2): 32.9 ml LVLd ap2: 7.4 cm EDV(MOD-sp2): 53.7 ml EDV(sp2-el): 56.7 ml LVAs ap2: 12.3 cm2 LVLs ap2: 5.9 cm ESV(MOD-sp2): 20.8 ml ESV(sp2-el): 21.6 ml EF(MOD-sp2): 61.2 % SV(sp4-el): 26.0 ml Ao sinus diam: 3.[address] Junction: 3.2 cm LA dimension(2D): 3.6 cm LA A4 area: 14.5 cm2 RA A4 area: 10.4 cm2 TAPSE: 2.0 cm Time Measurements MV dec time: 0.28 sec Doppler Measurements & Calculations MV E max warren: 74.4 cm/sec Lat Peak E' Warren: 9.0 cm/sec Med Peak E' Warren: 6.8 cm/sec MV A max warren: 114.3 cm/sec E/E' lat: 8.3 E/E' med: 10.9 MV E/A: 0.65 MV dec slope: 263.4 cm/sec2 Ao V2 max: 316.3 cm/sec LV V1 max: 92.3 cm/sec Ao max P.1 mmHg LV V1 max P.4 mmHg Ao V2 mean: 234.6 cm/sec LV V1 mean P.2 mmHg Ao mean P.8 mmHg LV V1 mean: 71.7 cm/sec Ao V2 VTI: 55.4 cm LV V1 VTI: 20.0 cm AV (velocity ratio): 0.36 DORINDA(I,D): 1.4 cm2 DORINDA(V,D): 1.1 cm2 SV(LVOT): 75.3 ml PA V2 max: 111.0 cm/sec TR max warren: 240.3 cm/sec PA max PG (full): 1.8 mmHg TR max P.1 mmHg ECHO/Echo Complete Interpretation Summary The estimated ejection fraction is 65 %. Unable to assess diastolic dysfunction. Moderate aortic stenosis. Ordering Physician: Juana Valencia Referring Physician: Juana Valencia Performed By: Majo Winkler RDCS
== END | disposition home or self-care (01) ==
LOC: CVS 08:43
PROVIDERS: PCP Internal Medicine; Referring Provider Internal Medicine; Visit Provider Internal Medicine
DX: I35.0 Nonrheumatic aortic (valve) stenosis (principal)
CPT/HCPCS: 93306

== ENCOUNTER 2024-11-02 11:50 | Emergency (ER) | payer MEDICARE, SELFPAY ==
[2024-11-02 11:50] VITALS: BP 135/86; PULSE 102; RESP 14; TEMP 36.7; O2SAT 98; BMI 25.5
--- NOTE | 2024-11-02 12:56 | EX.ED.DYSGE1 ---
HPI History of Present Illness Chief Complaint: GI Bleed Informant: patient and family Narrative Narrative: 84-year-old male presenting with rectal bleeding this morning just prior to arrival. He states he has history of constipation so take stool softeners and laxatives. His last bowel movement was a couple days ago which is not unusual for him. Today he felt like he needed to have a bowel movement, he tried to go but was unable. Therefore he did a couple of rectal suppositories, he continued to sit on the toilet straining to try to have a bowel movement, and then he states he eventually had blood on the paper and his hand. It was bright red blood. He has had no melena recently. He still feels like he needs to go and has not had a bowel movement yet. He denies any abdominal pain, nausea, vomiting, lightheadedness, recent illness, or any other systemic symptoms. He takes baby aspirin daily, he takes no anticoagulants or other antiplatelets. He is on oral and monthly parenteral chemotherapy for multiple myeloma which he states is under good control. [facility] Medical History Drug induced neutropenia Hypercalcemia Prerenal azotemia Vitamin D deficiency Hyperlipidemia Hypertensive heart disease Aortic valve stenosis, moderate Mild diastolic dysfunction GERD (gastroesophageal reflux disease) Heart murmur Hyperglycemia Essential (primary) hypertension Oral candidiasis Fatigue Nausea Cancer Bladder disease Anemia Back pain Heartburn hx of surgery of right index finger Arthritis Home Medications ?Medication ?Instructions ?Recorded ?Last Taken ?Type fenofibric acid (choline) 45 mg 45 mg PO DAILY 06/07/20 06/09/20 History capsule,delayed release simvastatin 20 mg tablet 20 mg PO DAILY 06/07/20 06/09/20 History amlodipine 5 mg tablet 5 mg PO DAILY 06/24/20 06/11/21 08:00 History ferrous sulfate 325 mg (65 mg 325 mg PO DAILY 03/12/21 Unknown History iron) tablet,delayed release docusate sodium 100 mg capsule 100 mg PO BID 06/10/21 Unknown History acetaminophen 500 mg tablet 500 mg PO WE 08/20/21 Unknown History (Tylenol Extra Strength) lorazepam 0.5 mg tablet 0.5 mg PO DAILY PRN Anxiety 08/20/21 Unknown History omeprazole magnesium 20 mg 20 mg PO WE 08/20/21 Unknown History tablet,delayed release (Prilosec OTC) sennosides 8.6 mg capsule (senna) 8.6 mg PO BID 08/20/21 Unknown History tamsulosin 0.4 mg capsule 0.4 mg PO DAILY 11/12/21 Unknown History propranolol 10 mg tablet 10 mg PO DAILY tremors 12/10/21 Unknown History ascorbate calcium (vitamin C) 500 500 mg PO DAILY 01/07/22 Unknown History mg tablet duloxetine 30 mg capsule,delayed 90 mg PO DAILY 01/07/22 Unknown History release mecobalamin (vitamin B12) 1,000 500 mcg PO DAILY 01/07/22 Unknown History mcg chewable tablet diphenhydramine HCl 25 mg capsule 50 mg PO .COMPLEX 09/16/22 Unknown History (Benadryl) pentoxifylline 400 mg 400 mg PO ONCE 04/28/23 Unknown History tablet,extended release lidocaine-prilocaine 2.5 %-2.5 % 1 applic topical ONCE PRN port 09/15/23 Unknown Rx topical cream access 30 days #30 grams sulfamethoxazole 800 1 tab PO MOWEFR #60 tabs 10/20/23 Unknown Rx mg-trimethoprim 160 mg tablet aspirin 81 mg chewable tablet 81 mg PO DAILY@0800 03/29/24 Unknown History acyclovir 400 mg tablet See Rx Instructions .Route 05/15/24 Unknown Rx .COMPLEX #180 tabs dexamethasone 4 mg tablet 20 mg (5 x 4 mg) PO .COMPLEX #60 05/24/24 Unknown Rx tabs cholecalciferol (vitamin D3) 50 50 mcg PO QDAY 09/13/24 Unknown History mcg (2,000 unit) capsule diphenhydramine 25 1 tab PO QHS PRN 09/13/24 Unknown History mg-acetaminophen 500 mg tablet (Tylenol PM Extra Strength) lenalidomide 2.5 mg capsule 2.5 mg PO QDAY 10/23/24 Unknown History (Revlimid) hydrocortisone 2.5 % topical cream 1 applic [place] QHS PRN hemorrhoids 11/02/24 Unknown Rx with perineal applicator #30 grams (Proctosol HC) Allergy/AdvReac Type Severity Reaction Status Date / Time No Known Allergies Allergy Verified 11/02/24 11:50 Family History Mother Pancreatic cancer Sister CANCER Brother Cancer Surgical History Hx of colonoscopy No history of previous surgery Social History housing: house Smoking Status: Former smoker Tobacco: How many years used: 10 Electronic Cigarette Use: not used second hand exposure: No alcohol intake: current alcohol intake frequency: a few times a week Alcohol type: beer substance use type: does not use caffeine: Yes Type: coffee Number of servings: 2 eating out: rarely or never what type of physical activity do you participate in: none stormy/protestant: None seatbelt use: always do you feel safe at home: Yes ROS ROS ED Constitutional Constitutional ED: Denies chills or fever(s) Eyes Eyes: Denies change in vision or diplopia ENT ENT ED: Denies rhinorrhea or sore throat Cardiovascular Cardiovascular: Denies chest pain or palpitations Respiratory/Chest Respiratory/Chest: Denies cough or dyspnea Gastrointestinal Gastrointestinal: Reports constipation and hematochezia; Denies abdominal pain, diarrhea, melena, nausea or vomiting Genitourinary Genitourinary ED: Denies dysuria or hematuria Musculoskeletal Musculoskeletal: Denies back pain or neck pain Integumentary Denies abscess or rash Neurologic Neurologic: Denies headache(s), paresthesias or weakness Psychiatric Psychiatric: Denies anxiety or suicidal thoughts EXAM Physical Exam Const Vital Signs: 11/02/24 11:50 11/02/24 14:04 11/02/24 14:07 Temperature 98.1 F Temperature Source Temporal Pulse Rate 102 H 103 H Pulse Rate [Lying] 88 Pulse Rate [Sitting (for 1 minute prior to obtaining)] 95 Pulse Rate [Standing (for 1 minute prior to obtaining)] 103 H Respiratory Rate 14 18 Blood Pressure 135/86 H 127/68 H Blood Pressure [Lying] 136/78 H Blood Pressure [Sitting (for 1 minute prior to obtaining)] 129/75 H Blood Pressure [Standing (for 1 minute prior to obtaining)] 127/68 H Blood Pressure Mean 102 87 Blood Pressure Mean [Lying] 97 Blood Pressure Mean [Sitting (for 1 minute prior to obtaining)] 93 Blood Pressure Mean [Standing (for 1 minute prior to obtaining)] 87 Pulse Ox 98 100 Oxygen Delivery Method Room Air Room Air Positive well nourished and well developed Constitutional Narrative: Well-appearing no distress General Appearance ED: well developed and NAD HEENT Reports moist mucous membranes normocephalic and atraumatic Eyes PERRL and EOMs intact bilaterally Neck full ROM and supple Resp normal respiratory effort and clear to auscultation bilaterally Cardio regular rate and regular rhythm Heart Sounds: murmur systolic III/ crescendo-decrescendo left sternal border GI non-tender and non-distended GI Narrative: Rectal exam benign, no tenderness, no external hemorrhoids, no fissure, no blood present. Auscultation: normoactive bowel sounds Palpation: soft Back/Spine no CVA tenderness General Back: other FROM Extremity normal to inspection General Extremety ED: Negative for edema, pulses abnormal or tenderness General Extremity: Negative for edema or pulses abnormal Neuro oriented x3, CN's II-XII intact bilaterally and no sensory deficits noted Sensorium / Orientation: awake and alert Motor Exam: strength 5/5 throughout Skin no rashes or lesions noted and no wounds MDM MDM MDM Narrative Medical decision making narrative: Labs are reviewed and unremarkable, similar to prior including hemoglobin. Orthostatics are negative. The patient had 2 bowel movements while he was here, and had no blood in either one of them. His vital signs are unremarkable. He appears well. My suspicion is that from straining he had an internal hemorrhoid, this would be much less likely to be diverticular bleeding or anything dangerous. He has been having constipation ever since he has been on chemotherapy for the multiple myeloma. He is on Colace and senna. He is wondering what else he can do I advise adding MiraLAX and we discussed how to use that. I am also going to prescribe him Proctosol HC, I advised him that if he has no more straining and no more bleeding, he does not absolutely have to use it, but if he does have a use it for a week and then follow-up. Lab Data Attestation: I reviewed the patient's lab results. Labs: Laboratory Results - last 24 hr 11/02/24 13:35 WBC 3.2 L RBC 3.28 L Hgb 11.0 L Hct 33.7 L MCV 102.7 H MCH 33.5 H MCHC 32.6 RDW Std Deviation 51.5 H RDW Coeff of Orestes 13.6 Plt Count 213 MPV 9.1 Immature Gran % (Auto) 0.300 Neut % (Auto) 44.8 L Lymph % (Auto) 31.8 Randolph % (Auto) 15.7 H Eos % (Auto) 6.5 H Baso % (Auto) 0.9 Absolute Neuts (auto) 1.5 L Absolute Lymphs (auto) 1.03 Nucleated RBC % 0 Sodium 142 Potassium 3.6 Chloride 106 Carbon Dioxide 24.5 Anion Gap 12 BUN 21 H Creatinine 1.35 H Estim Creat Clear Calc 44.39 L Est GFR (MDRD) Non-Af 51 L BUN/Creatinine Ratio 15.3 Glucose 106 H Calcium 9.5 Discharge Plan Triage Chief Complaint: GI Bleed ED Provider: Scott Moore Dx/Rx/DC Orders Clinical Impression: Rectal bleeding, Multiple myeloma, Constipation Instructions: ED Constipation (Adult), ED Lower GI Bleeding (Stable) Prescriptions: New hydrocortisone [Proctosol HC] 2.5 % cream with perineal applicator 1 applic [place] QHS PRN (Reason: hemorrhoids) Qty: 30 0RF No Action ferrous sulfate 325 mg (65 mg iron) tablet,delayed release (DR/EC) 325 mg PO DAILY lorazepam 0.5 mg tablet 0.5 mg PO DAILY PRN (Reason: Anxiety) senna 8.6 mg capsule 8.6 mg PO BID omeprazole magnesium [Prilosec OTC] 20 mg tablet,delayed release (DR/EC) 20 mg PO WE acetaminophen [Tylenol Extra Strength] 500 mg tablet 500 mg PO WE diphenhydramine HCl [Benadryl] 25 mg capsule 50 mg PO .COMPLEX Rx Instructions: 50 mg orally only on treatment days; tamsulosin 0.4 mg capsule 0.4 mg PO DAILY mecobalamin (vitamin B12) 1,000 mcg tablet,chewable 500 mcg PO DAILY propranolol 10 mg tablet 10 mg PO DAILY duloxetine 30 mg capsule,delayed release(DR/EC) 90 mg PO DAILY ascorbate calcium (vitamin C) 500 mg tablet 500 mg PO DAILY pentoxifylline 400 mg tablet extended release 400 mg PO ONCE Rx Instructions: must administer with a meal/food lidocaine-prilocaine 2.5-2.5 % cream 1 applic topical ONCE PRN (Reason: port access ) 30 Days Qty: 30 2RF dexamethasone 4 mg tablet 20 mg PO .COMPLEX Qty: 60 1RF Rx Instructions: 20 mg orally ONLY on day 1 of 28-day treatment cycle cholecalciferol (vitamin D3) 50 mcg (2,000 unit) capsule 50 mcg PO QDAY diphenhydramine-acetaminophen [Tylenol PM Extra Strength] 25-500 mg tablet 1 tab PO QHS PRN lenalidomide [Revlimid] 2.5 mg capsule 2.5 mg PO QDAY Rx Instructions: swallow whole with glass of water; do not open, crush, chew , break, or dissolve. Take days 1-21 then off for 7 days. simvastatin 20 MG tablet 20 mg PO DAILY fenofibric acid (choline) 45 MG capsule,delayed release(DR/EC) 45 mg PO DAILY amlodipine 5 MG tablet 5 mg PO DAILY aspirin 81 mg tablet,chewable 81 mg PO DAILY@0800 Rx Instructions: m thru sat only docusate sodium 100 MG capsule 100 mg PO BID sulfamethoxazole-trimethoprim 800-160 mg tablet 1 tab PO MOWEFR Qty: 60 4RF acyclovir 400 mg tablet See Rx Instructions .ROUTE .COMPLEX Qty: 180 2RF Dose Instruction: Take 1 tablet by mouth twice daily Rx Instructions: Take 1 tablet by mouth twice daily Primary Care Provider: Juana Valencia Referrals: Juana Valencia DO [Primary Care Provider] - 1 Week if not improving Print Language: Kiswahili Disposition Disposition: Home, Self Care
[2024-11-02 13:46] LABS: Hematocrit 33.7 % (40-54); Hemoglobin 11.0 g/dL (13.0-16.5); Immature Granulocytes Count 0.010 X10^3/uL (0.0-0.0); Mean Corp Hgb Conc 32.6 g/dL (32-36); Mean Corpuscular Volume 102.7 fL (80-94); Mean Platelet Vol. 9.1 fl (6.2-12.0); NRBC Flagged by Analyzer 0 % (0-5); Platelet Count 213 K/mm3 (150-450); RBC Distribution Width CV 13.6 % (11.6-14.6); RBC Distribution Width SD 51.5 fl (35.1-43.9); Red Blood Count 3.28 M/mm3 (4.6-6.2); White Blood Count 3.2 K/mm3 (4.4-11.0)
[2024-11-02 14:04] VITALS: BP 127/68; BP 129/75; BP 136/78; PULSE 103; PULSE 88; PULSE 95
[2024-11-02 14:07] VITALS: BP 127/68; PULSE 103; RESP 18; O2SAT 100
[2024-11-02 14:22] LABS: Anion Gap 12 (5-15); BUN 21 mg/dL (4-19); BUN/Creat Ratio 15.3 RATIO (10-20); Calcium,Total 9.5 mg/dL (7.6-11.0); Carbon Dioxide 24.5 mmol/L (21.0-32.0); Chloride 106 mmol/L (98-108); Estimated Creatinine Clearance 44.39 ml/min (50-250); Glucose 106 mg/dL (70-99); Potassium 3.6 mmol/L (3.3-5.1)
[2024-11-02 15:36] VITALS: BP 122/64; PULSE 98; RESP 16; TEMP 36.7; O2SAT 99
== END 2024-11-02 15:37 | disposition home or self-care (01) ==
PROVIDERS: Emergency Provider Emergency Medicine; PCP Internal Medicine; Visit Provider Emergency Medicine
DX: K62.5 Hemorrhage of anus and rectum (principal); C90.00 Multiple myeloma not having achieved remission; I10 Essential (primary) hypertension; Z87.891 Personal history of nicotine dependence; E78.5 Hyperlipidemia, unspecified; Z79.82 Long term (current) use of aspirin; K59.03 Drug induced constipation; T45.1X5A Adverse effect of antineoplastic and immunosuppressive drugs, initial encounter
CPT/HCPCS: 36591; 80048; 85025; 99284; A4216

== ENCOUNTER → 2025-03-28 | Outpatient (CLI) | payer MEDICARE, SELFPAY ==
--- NOTE | 2025-03-28 10:54 | ECHOD_ITS ---
Reason For Study Reason For Study: MURMUR Procedure This was a 2D Doppler, Color Flow transthoracic echocardiogram. Myocardial strain analysis was performed in this exam to aid in the assessment of cardiac function. Exam performed in department. Left Ventricle Normal LV size. The left ventricular ejection fraction is 65 %. Stage 1 diastolic dysfunction. No regional wall motion abnormalities noted. Right Ventricle Normal RV size. Normal systolic function. Atria Normal left atrium. Normal right atrium. Mitral Valve Normal mitral valve. Tricuspid Valve Normal tricuspid valve. Mild (1+) tricuspid valve insufficiency. Pulmonary artery systolic pressure is 24 mmHg. Aortic Valve Trisinus/trileaflet aortic valve. Moderate focal aortic valve calcification. Peak aortic valve gradient 36 mmHg. Mean aortic valve gradient 22 mmHg. Moderate aortic stenosis. Pulmonic Valve Normal pulmonic valve. Great Vessels Normal aortic root. The pulmonary artery is normal size. Inferior vena cava collapse with respiration. Pericardium/Pleural No pericardial effusion. MMode/2D Measurements & Calculations LVIDd: 3.8 cm IVSd: 1.1 cm LVOT diam: 2.0 cm LVIDs: 2.2 cm LVPWd: 1.2 cm LVOT area: 3.2 cm2 RVDd: 3.0 cm FS: 41.7 % Ao root diam: 3.9 cm LAV(MOD-bp): 51.8 ml LVAd ap4: 20.0 cm2 LAV(MOD-bp) Indexed: 24.3 ml/m2 LVLd ap4: 7.5 cm LAV(MOD-sp2): 58.4 ml EDV(MOD-sp4): 43.9 ml LAV(MOD-sp4): 43.6 ml EDV(sp4-el): 45.3 ml LVAs ap4: 9.4 cm2 LVLs ap4: 5.8 cm ESV(MOD-sp4): 14.0 ml ESV(sp4-el): 13.0 ml EF(MOD-sp4): 68.1 % EF(sp4-el): 71.3 % LVAd ap2: 22.2 cm2 SV(MOD-sp4): 29.9 ml SV(MOD-sp2): 34.4 ml LVLd ap2: 8.5 cm SI(MOD-sp4): 14.1 ml/m2 SI(MOD-sp2): 16.2 ml/m2 EDV(MOD-sp2): 49.7 ml EDV(sp2-el): 49.5 ml LVAs ap2: 10.5 cm2 LVLs ap2: 6.6 cm ESV(MOD-sp2): 15.3 ml ESV(sp2-el): 14.3 ml EF(MOD-sp2): 69.2 % SV(sp4-el): 32.3 ml LA dimension(2D): 3.4 cm LA A4 area: 17.3 cm2 RA A4 area: 9.9 cm2 TAPSE: 1.9 cm Time Measurements MV dec time: 0.16 sec Doppler Measurements & Calculations MV E max warren: 71.4 cm/sec Lat Peak E' Warren: 6.6 cm/sec MV A max warren: 114.2 cm/sec E/E' lat: 10.7 MV dec slope: 445.6 cm/sec2 MV E/A: 0.63 Ao V2 max: 302.3 cm/sec LV V1 max: 83.2 cm/sec SV(LVOT): 52.2 ml Ao max P.7 mmHg LV V1 max P.8 mmHg Ao V2 mean: 227.1 cm/sec LV V1 mean P.7 mmHg Ao mean P.5 mmHg LV V1 mean: 62.4 cm/sec Ao V2 VTI: 55.2 cm LV V1 VTI: 16.2 cm AV (velocity ratio): 0.29 DORINDA(I,D): 0.95 cm2 DORINDA(V,D): 0.89 cm2 PA V2 max: 145.1 cm/sec TR max warren: 232.8 cm/sec TR max P.7 mmHg ECHO/Echo Complete Interpretation Summary Normal LV size. The left ventricular ejection fraction is 65 %. Stage 1 diastolic dysfunction. Mild (1+) tricuspid valve insufficiency. Moderate focal aortic valve calcification. Mean aortic valve gradient 22 mmHg. Moderate aortic stenosis. Ordering Physician: Veronica Posadas Referring Physician: Juana Valencia Performed By: Robles Burrell RDCS
== END | disposition home or self-care (01) ==
LOC: CVS 10:53
PROVIDERS: PCP Internal Medicine; Referring Provider Physician Assistant Medical; Visit Provider Physician Assistant Medical
DX: I35.0 Nonrheumatic aortic (valve) stenosis (principal); R01.1 Cardiac murmur, unspecified
CPT/HCPCS: 93306

== ENCOUNTER → 2025-04-17 | Outpatient (CLI) | payer MEDICARE, SELFPAY ==
[2025-04-17 10:09] LABS: Hematocrit 45.9 % (40-54); Hemoglobin 15.2 g/dL (13.0-16.5); Immature Granulocytes Count 0.010 X10^3/uL (0.0-0.0); Mean Corp Hgb Conc 33.1 g/dL (32-36); Mean Corpuscular Volume 99.6 fL (80-94); Mean Platelet Vol. 9.4 fl (6.2-12.0); NRBC Flagged by Analyzer 0 % (0-5); Platelet Count 197 K/mm3 (150-450); RBC Distribution Width CV 13.8 % (11.6-14.6); RBC Distribution Width SD 50.7 fl (35.1-43.9); Red Blood Count 4.61 M/mm3 (4.6-6.2); White Blood Count 4.1 K/mm3 (4.4-11.0)
[2025-04-17 10:42] LABS: AST(SGOT) 17 U/L (<=37); Alanine Aminotransfer ALT/SGPT 7 U/L (<=46); Albumin, Serum 4.3 g/dL (3.4-4.8); Alkaline Phosphatase 92 U/L (40-129); Anion Gap 10 (5-15); BUN 15 mg/dL (4-19); BUN/Creat Ratio 11.1 RATIO (10-20); Calcium,Total 9.8 mg/dL (7.6-11.0); Carbon Dioxide 27.7 mmol/L (21.0-32.0); Chloride 104 mmol/L (98-108); Cholesterol 117 mg/dL (<=200); Globulin 2.4 g/dL (2.2-4.2); Glucose 100 mg/dL (70-99); Low Density Lipoprotein Calc. 57 mg/dL; Potassium 4.1 mmol/L (3.3-5.1); Triglycerides 126 mg/dL; Very Low Density Lipoprotein 25 mg/dL (5-40); cholesterol:hdl ratio screen 3.15
== END | disposition home or self-care (01) ==
LOC: CIMLAB 08:53
PROVIDERS: PCP Internal Medicine; Referring Provider Nurse Practitioner Family; Visit Provider Nurse Practitioner Family
DX: I10 Essential (primary) hypertension (principal)
CPT/HCPCS: 36415; 80053; 80061; 84443; 85025